=== PATIENT | female | born 1940 | race Caucasian/White ===

== ENCOUNTER 2018-06-10 10:21 | Outpatient (CLI) | payer MEDICARE, BC, SELFPAY ==
[2018-06-10 11:56] LABS: Hemoglobin A1C 6.2 % (4.5-6.2)
== END 2018-06-10 10:41 ==
PROVIDERS: PCP Family Medicine; Visit Provider Family Medicine
DX: E11.9 Type 2 diabetes mellitus without complications (principal)
CPT/HCPCS: 36415; 83036

== ENCOUNTER 2018-11-19 11:49 | Emergency (ER) | payer MEDICARE, BC, SELFPAY ==
[2018-11-19 12:01] VITALS: BP 186/66; PULSE 71; RESP 18; TEMP 36.5; O2SAT 97
--- NOTE | 2018-11-19 13:02 | ED.GENADUL_ITS ---
Discharge Plan Disposition Patient Disposition: HOME Discharge Details Chief Complaint: Orthopedic Clinical Impression: Acute left-sided low back pain Primary Care Provider: Syed Prieto ED Provider: Sly Muir Home Meds and New Rx's Prescriptions: New lidocaine 5 % adhesive patch,medicated 1 patch TP DAILY Qty: 15 RF: 0 ibuprofen 600 mg tablet 600 mg PO TID PRN (Reason: pain) Qty: 60 RF: 0 acetaminophen [Tylenol] 325 mg tablet 650 mg PO Q6H PRN (Reason: pain) Qty: 90 RF: 0 Continued ipratropium bromide 42 mcg (0.06 %) spray,non-aerosol 2 spray NS TID PRN (Reason: vasomotor rhinitis) Qty: 1 RF: 4 losartan 100 mg tablet 100 mg PO QAM Qty: 90 RF: 4 metoprolol succinate 50 mg tablet extended release 24 hr 50 mg PO DAILY Qty: 90 RF: 4 nicotine 21 mg/24 hr patch 24 hour 1 patch TD DAILY Qty: 28 RF: 2 Back and Body Pain Reliever 1 EACH tablet 1 ea PO DAILY RF: 0 clotrimazole 45 GM cream 45 gm Topical BID Qty: 45 RF: 3 diabetic shoes Qty: 2 RF: 0 nitroglycerin 0.4 MG tablet, sublingual 1 tab Buccal PRN Qty: 50 RF: 3 triamcinolone acetonide 15 GM cream 0 Topical BID Qty: 30 RF: 3 pravastatin 20 MG tablet 1 tab PO DAILY Qty: 90 RF: 4 sertraline 25 MG tablet 25 mg PO DAILY Qty: 30 RF: 3 omeprazole 40 MG capsule,delayed release(DR/EC) 1 tab PO DAILY Qty: 90 RF: 4 amlodipine 10 MG tablet 10 mg PO DAILY Qty: 90 RF: 4 hydrochlorothiazide 25 MG tablet 25 mg PO DAILY Qty: 90 RF: 4 Discontinued acetaminophen 325 MG tablet 325 mg PO DAILY RF: 0 naproxen sodium 550 MG tablet 550 mg PO BID Qty: 14 RF: 0 Discharge Instructions Instructions: Acute Low Back Pain (ED) Additional Instructions: Please take ibuprofen over the counter. Take 600mg by mouth every 6 hours as needed for pain. Please take acetaminophen (tylenol) - 650mg every 6 hours by mouth as needed for pain. Use lidocaine patch as prescribed. Please contact your primary care physician to arrange follow-up. If pain persists you may need additional diagnostic testing. Return to the ER for any worsening or new concerning symptoms. Referrals: Syed Prieto MD [Primary Care Provider] - Discharge Data Discharge Date/Time-TO BE ENTERED AT DEPARTURE: 11/19/18 13:17 Medical Decision Making 78yo f here with left lumbar and sacral paraspinal back pain. Patient is neurologically intact. No signs of cauda equina. No history to suspect fracture. Patient has no midline tenderness. Plan to increase dosing of ibuprofen and Tylenol. Will treat with lidocaine patch. I offered Valium and patient declined. Patient informed of elevated blood pressure. Patient will follow-up with her primary care physician as scheduled next week. Usual and customary discharge instructions were provide HPI General Mode of arrival: ambulatory . Date/Time Provider Initiated Documentation: 11/19/18 12:57 . Limitations to Documentation: no limitations . Information obtained by: patient . HPI Narrative: 78yo f here with chief complaint of back pain. Back pain is localized to left lower back. Patient denies trauma. 2 weeks ago she does note that she bent over and experienced a popping sensation in her left posterior hip. Over the past 4 days she notes increased discomfort in left low back. Pain feels sharp and worse with certain positions including bending and twisting. She has no associated numbness or bowel or bladder dysfunction. No abdominal pain Related Data Home Medications Medication Instructions Recorded Confirmed Back and Body Pain Reliever 1 ea PO DAILY tab 06/16/14 06/10/18 clotrimazole 45 gm TOPICAL BID #45 g 05/16/15 11/19/18 nitroglycerin 1 tab BUCCAL PRN #50 tab-cap 11/20/16 11/19/18 triamcinolone acetonide 0 TOPICAL BID #30 g 11/20/16 06/10/18 pravastatin 1 tab PO DAILY #90 tab 11/12/17 11/19/18 amlodipine 10 mg PO DAILY #90 tab 12/15/17 11/19/18 hydrochlorothiazide 25 mg PO DAILY #90 tab 12/15/17 11/19/18 omeprazole 1 tab PO DAILY #90 cap 12/15/17 11/19/18 sertraline 25 mg PO DAILY #30 tab-cap 12/15/17 11/19/18 ipratropium bromide 42 mcg (0.06 2 spray NS TID PRN #1 spray 06/10/18 11/19/18 %) nasal spray losartan 100 mg tablet 100 mg PO QAM #90 tab 06/10/18 11/19/18 metoprolol succinate 50 mg 50 mg PO DAILY #90 tab 06/10/18 11/19/18 tablet,extended release 24 hr nicotine 21 mg/24 hr daily 1 patch TD DAILY #28 each 06/10/18 11/19/18 transdermal patch acetaminophen [Tylenol] 650 mg PO Q6H PRN #90 tab 11/19/18 ibuprofen 600 mg PO TID PRN #60 tab 11/19/18 lidocaine 1 patch TP DAILY #15 each 11/19/18 Previous Rx's Medication Instructions Recorded pravastatin 1 tab PO DAILY #90 tab 11/12/17 amlodipine 10 mg PO DAILY #90 tab 12/15/17 hydrochlorothiazide 25 mg PO DAILY #90 tab 12/15/17 omeprazole 1 tab PO DAILY #90 cap 12/15/17 sertraline 25 mg PO DAILY #30 tab-cap 12/15/17 ipratropium bromide 42 mcg (0.06 2 spray NS TID PRN #1 spray 06/10/18 %) nasal spray losartan 100 mg tablet 100 mg PO QAM #90 tab 06/10/18 metoprolol succinate 50 mg 50 mg PO DAILY #90 tab 06/10/18 tablet,extended release 24 hr nicotine 21 mg/24 hr daily 1 patch TD DAILY #28 each 06/10/18 transdermal patch acetaminophen [Tylenol] 650 mg PO Q6H PRN #90 tab 11/19/18 ibuprofen 600 mg PO TID PRN #60 tab 11/19/18 lidocaine 1 patch TP DAILY #15 each 11/19/18 Allergies Allergy/AdvReac Type Severity Reaction Status Date / Time enalapril maleate AdvReac Intermediate Dizziness/L Unverified 06/10/18 09:33 [From Vasotec] ightheade General Stated Complaint: Orthopedic LACHELLE: 4 Review of Systems Constitutional Denies fever(s) and Denies weakness Cardiovascular Denies chest pain and Denies dyspnea Respiratory Denies dyspnea Gastrointestinal Denies abdominal pain Musculoskeletal Reports as per HPI and Denies numbness Neurologic Reports as per HPI, Denies numbness and Denies weakness PFSH Surgical History Abdominal hysterectomy Bladder Surgery Cholecystectomy Oophrectomy, Both Family History Mother Essential hypertension Personal history of malignant neoplasm Father Essential hypertension Personal history of malignant neoplasm Stroke Sister Essential hypertension Personal history of malignant neoplasm Brother Heart disease Grandfather Heart disease Grandmother Heart disease FAMILY HX BRCA gene positive Son Substance abuse Neoplasm Son Substance abuse Daughter Essential hypertension Daughter Depression Daughter Essential hypertension Depression Hyperlipidemia Daughter Essential hypertension Hyperlipidemia Other Alcohol abuse Social History Smoking/Tobacco Use Status: Current every day Tobacco Type: cigarettes Quit status: considering quitting Counseling given: provider counseling Alcohol Intake: current Alcohol Intake frequency: holidays/special occasions only Alcohol type: wine Drug use: Never Substance use type: unknown Caregiver/Support person: No Household members: spouse and children Housing: house Pets and animals: Yes Pets and animals: cat(s) and dog(s) Sexually active: No Do you think of yourself as: straight/heterosexual Current gender identity: female Frequency: does not exercise Nasrin/Confucianist: Orthodoxy Special nasrin needs: No Do you feel safe at home: Yes Do you feel safe in your relationship?: Yes Exam Const General: cooperative and no acute distress HENMT Head: normocephalic Mouth: moist mucous membranes Eyes Conjunctivae: normal conjunctivae Sclera: normal sclerae Neck Neck: supple Resp Auscultation: clear to auscultation bilaterally, no rales, no rhonchi and no wheezes Cardio Jugular venous pressure: no JVD Rate: regular rate and not tachycardic Rhythm: regular rhythm GI Palpation: soft, not firm, no guarding, no masses, not rigid and nontender Back/Spine/Pelvis Back: No erythema, No warmth, No sacral edema and No ecchymosis Cervical Spine: cervical ROM normal and No cervical spinal tenderness Thoracic/Lumbar Spine: paraspinal tenderness (left lumbar), No thoracic spinal tenderness and No lumbar spinal tenderness Sacroiliac joints: on the left tender to palpation (mild) Skin General skin exam: no rashes or lesions noted Neuro General: alert, awake, oriented x3 and tone normal Course Vital Signs Temperature 36.5 C 11/19/18 12:01 Pulse 71 11/19/18 12:01 Respiratory Rate 18 11/19/18 12:01 Blood Pressure 186/66 H 07/05/19 12:01 Pulse Oximetry 97 11/19/18 12:01 Temperature 36.5 C 11/19/18 12:01 Temperature Source Temporal Artery Scan 11/19/18 12:01 Pulse 71 11/19/18 12:01 Respiratory Rate 18 11/19/18 12:01 Respiratory Effort Non-Labored 11/19/18 12:06 Blood Pressure 186/66 H 11/19/18 12:01 Blood Pressure Position Sitting 11/19/18 12:01 Pulse Oximetry 97 11/19/18 12:01 Oxygen Delivery Method Room Air 11/19/18 12:01 Oxygen Flow Rate 0 11/19/18 12:01 Pain Level 10 11/19/18 12:01
[2018-11-19] MEDS: Ibuprofen 600 MG TAB PO (13:09)
[2018-11-19] MEDS: Acetaminophen 325 MG TAB 650 MG PO (13:10)
[2018-11-19] MEDS: Lidocaine 5% Patch 1 PATCH TP (13:11)
== END 2018-11-19 13:17 | disposition home or self-care (01) ==
PROVIDERS: Emergency Provider Student in an Organized Health Care Education/Training Program; PCP Family Medicine
DX: M54.5 Low back pain (principal); E11.9 Type 2 diabetes mellitus without complications; I10 Essential (primary) hypertension
CPT/HCPCS: 99283

== ENCOUNTER 2019-01-21 10:03 | Outpatient (CLI) | payer MEDICARE, BC, SELFPAY ==
--- NOTE | 2019-01-21 12:00 | DI.RAD_ITS ---
SYMPTOMS/DIAGNOSIS: RT KNEE PAIN, M25.561 RIGHT KNEE: Four views were obtained. The cartilaginous joint spaces appear fairly well maintained. Mild marginal osteophyte formation noted particularly at the patellofemoral joint. CONCLUSION: Mild DJD of the knee. No other significant findings.
[2019-01-21 13:57] LABS: Anion Gap 10.9 mmol/L (3-11); BUN 16 mg/dL (7-18); CO2 28.1 mmol/L (21.0-32.0); CREATININE 0.64 mg/dL (0.55-1.02); Calcium 9.4 mg/dL (8.5-10.1); Chloride 105 mmol/L (98-107); Glucose 112 mg/dL (70-100); Potassium 4.2 mmol/L (3.5-5.1); Sodium 144 mmol/L (136-145)
== END 2019-01-21 10:23 ==
PROVIDERS: PCP Family Medicine; Visit Provider Family Medicine
DX: M25.561 Pain in right knee (principal); M17.11 Unilateral primary osteoarthritis, right knee; I10 Essential (primary) hypertension
CPT/HCPCS: 36415; 73562; 80048

== ENCOUNTER 2019-03-15 07:40 | Emergency (ER) | payer MEDICARE, BC, SELFPAY ==
[2019-03-15 07:51] VITALS: BP 160/59; PULSE 73; RESP 16; TEMP 36.5; O2SAT 98
--- NOTE | 2019-03-15 08:26 | W.ED.GENAD ---
Discharge Plan Disposition Patient Disposition: HOME Condition: Good Discharge Details Chief Complaint: RashLesion Clinical Impression: Tick bite Primary Care Provider: Syed Prieto ED Provider: Cely Fletcher Home Meds and New Rx's Prescriptions: No Action ipratropium bromide 42 mcg (0.06 %) spray,non-aerosol 2 spray NS TID PRN (Reason: vasomotor rhinitis) Qty: 1 RF: 4 losartan 100 mg tablet 100 mg PO QAM Qty: 90 RF: 4 metoprolol succinate 50 mg tablet extended release 24 hr 50 mg PO DAILY Qty: 90 RF: 4 nicotine 21 mg/24 hr patch 24 hour 1 patch TD DAILY Qty: 28 RF: 2 Back and Body Pain Reliever 1 EACH tablet 1 ea PO DAILY RF: 0 clotrimazole 45 GM cream 45 gm Topical BID Qty: 45 RF: 3 diabetic shoes Qty: 2 RF: 0 nitroglycerin 0.4 MG tablet, sublingual 1 tab Buccal PRN Qty: 50 RF: 3 triamcinolone acetonide 15 GM cream 0 Topical BID Qty: 30 RF: 3 amlodipine 10 mg tablet 10 mg PO DAILY Qty: 90 RF: 4 hydrochlorothiazide 25 mg tablet 25 mg PO DAILY Qty: 90 RF: 4 omeprazole 40 mg capsule,delayed release(DR/EC) 40 mg PO DAILY Qty: 90 RF: 4 pravastatin 20 mg tablet 20 mg PO DAILY Qty: 90 RF: 4 lidocaine 5 % adhesive patch,medicated 1 patch TP DAILY Qty: 15 RF: 0 ibuprofen 600 mg tablet 600 mg PO TID PRN (Reason: pain) Qty: 60 RF: 0 acetaminophen [Tylenol] 325 mg tablet 650 mg PO Q6H PRN (Reason: pain) Qty: 90 RF: 0 Discharge Instructions Instructions: Lyme Disease (ED), Tick Bite (ED) Additional Instructions: Wash area of tick bite with soap and water once or twice daily. May apply topical antibiotic ointment to the bite area Observe for any symptoms of Lyme as discussed. Specifically observe for headache, achy joints, fever, fatigue or feeling vaguely ill, rashes. Review information regarding Lyme symptoms and tick bites Recheck with your primary care doctor in the next 4 to 6 weeks for possible lab recheck as discussed. Return for any worsening or concerns sooner if needed. Return for any signs or symptoms of Lyme as discussed Medical Decision Making Is a very pleasant 78-year-old woman who presents for tick bite which has been attached for an unknown period of time she thinks greater than 3 days. She does report mild fatigue over the weekend that she attributes to travel for a over the weekend. Patient consents to prophylactic dose of doxycycline at this time. Would prefer close observation for any developing symptoms and retest labs with PCP at her convenience. Patient counseled regarding signs and symptoms of Lyme. Information sheets provided for patient to review for home. Patient agrees with plan of care. The patient was stable and requested discharge. Prior to discharge, my usual and customary return precautions were reviewed with the patient - this included follow-up instructions and reasons to return to the Emergency Department if conditions worsens, does not improve as expected, or other new concerns arise. HPI General Date/Time Provider Initiated Documentation: 03/15/19 08:22. HPI Narrative: Patient presents for concerns of tick bite. Patient reports she was away for the weekend and does not recall when she was bit. Patient did note last night a tick embedded behind her right upper arm. Patient has been unable to fully remove the tick. Patient does report mild fatigue over the weekend but was away for a and attributes her fatigue to travel. Patient denies headache, fever, new joint pain or new ill feeling. Patient denies any rashes outside of mild erythema at the site of the bite. No other concerns or complaints at this time Related Data Home Medications Medication Instructions Recorded Confirmed Back and Body Pain Reliever 1 ea PO DAILY tab 06/16/14 03/15/19 clotrimazole 45 gm TOPICAL BID #45 g 05/16/15 03/15/19 nitroglycerin 1 tab BUCCAL PRN #50 tab-cap 11/20/16 03/15/19 triamcinolone acetonide 0 TOPICAL BID #30 g 11/20/16 01/21/19 ipratropium bromide 42 mcg (0.06 2 spray NS TID PRN #1 spray 06/10/18 03/15/19 %) nasal spray losartan 100 mg tablet 100 mg PO QAM #90 tab 06/10/18 03/15/19 metoprolol succinate 50 mg 50 mg PO DAILY #90 tab 06/10/18 03/15/19 tablet,extended release 24 hr nicotine 21 mg/24 hr daily 1 patch TD DAILY #28 each 06/10/18 03/15/19 transdermal patch acetaminophen [Tylenol] 650 mg PO Q6H PRN #90 tab 11/19/18 03/15/19 ibuprofen 600 mg PO TID PRN #60 tab 11/19/18 03/15/19 lidocaine 1 patch TP DAILY #15 each 11/19/18 03/15/19 amlodipine 10 mg tablet 10 mg PO DAILY #90 tab 12/23/18 03/15/19 hydrochlorothiazide 25 mg tablet 25 mg PO DAILY #90 tab 12/23/18 03/15/19 omeprazole 40 mg capsule,delayed 40 mg PO DAILY #90 cap 12/23/18 03/15/19 release pravastatin 20 mg tablet 20 mg PO DAILY #90 tab 12/23/18 03/15/19 Previous Rx's Medication Instructions Recorded ipratropium bromide 42 mcg (0.06 2 spray NS TID PRN #1 spray 06/10/18 %) nasal spray losartan 100 mg tablet 100 mg PO QAM #90 tab 06/10/18 metoprolol succinate 50 mg 50 mg PO DAILY #90 tab 06/10/18 tablet,extended release 24 hr nicotine 21 mg/24 hr daily 1 patch TD DAILY #28 each 06/10/18 transdermal patch acetaminophen [Tylenol] 650 mg PO Q6H PRN #90 tab 11/19/18 ibuprofen 600 mg PO TID PRN #60 tab 11/19/18 lidocaine 1 patch TP DAILY #15 each 11/19/18 amlodipine 10 mg tablet 10 mg PO DAILY #90 tab 12/23/18 hydrochlorothiazide 25 mg tablet 25 mg PO DAILY #90 tab 12/23/18 omeprazole 40 mg capsule,delayed 40 mg PO DAILY #90 cap 12/23/18 release pravastatin 20 mg tablet 20 mg PO DAILY #90 tab 12/23/18 Allergies Allergy/AdvReac Type Severity Reaction Status Date / Time enalapril maleate AdvReac Intermediate Dizziness/L Unverified 03/15/19 07:55 [From Vasotec] ightheade General Stated Complaint: RashLesion LACHELLE: 4 Review of Systems All systems reviewed & are unremarkable except as noted in HPI and below Constitutional Constitutional: Denies chills, Denies fatigue, Denies fever(s), Denies headache(s) and Denies malaise ENT Ears, Nose, Mouth, and Throat: Denies headache(s) Gastrointestinal Gastrointestinal: Denies abdominal pain, Denies nausea and Denies vomiting Musculoskeletal Musculoskeletal: Denies back pain Integumentary/Breasts Skin/Breast: Denies rash Neurologic Neurologic: Denies headache(s) Endocrine Endocrine: Denies fatigue PFSH Surgical History Abdominal hysterectomy and anterior repair Bladder Surgery X 2 Cholecystectomy Oophrectomy, Both bilateral; sister + BRCA gene Family History Mother Essential hypertension Personal history of malignant neoplasm COLON Father Essential hypertension Personal history of malignant neoplasm LUNG Stroke Sister Essential hypertension Personal history of malignant neoplasm OVARIAN Brother Heart disease Grandfather Heart disease Grandmother Heart disease FAMILY HX BRCA gene positive Son Substance abuse Neoplasm Son Substance abuse Daughter Essential hypertension Daughter Depression Daughter Essential hypertension Depression Hyperlipidemia Daughter Essential hypertension Hyperlipidemia Other Alcohol abuse Social History Smoking/Tobacco Use Status: Current every day Tobacco Type: cigarettes Quit status: considering quitting Counseling given: provider counseling Alcohol Intake: current Alcohol Intake frequency: holidays/special occasions only Alcohol type: wine Drug use: Never Substance use type: unknown Caregiver/Support person: No Household members: spouse and children Housing: house Pets and animals: Yes Pets and animals: cat(s) and dog(s) Sexually active: No Do you think of yourself as: straight/heterosexual Current gender identity: female Frequency: does not exercise Nasrin/Buddhism: Rastafarian Special nasrin needs: No Do you feel safe at home: Yes Do you feel safe in your relationship?: Yes Exam Narrative Exam Narrative: CONST: Healthy appearing patient, in no acute distress. Well hydrated. Alert and alert. NECK: Normal visual inspection. FROM. Trachea midline. No Midline tenderness. CHEST: Normal insepection of the chest. MUSCULOSKELETAL: Normal Gait. FROM of all extremities. SKIN: Normal. Dry. No rashes. Patient with a embedded tick head on the posterior of her right proximal arm. Tick head was easily removed. No obvious retained foreign body. Mild erythema approximately 1 cm at site of tick bite. No associated rashes NEURO: Alert and awake. Speech clear. PSYCH: Normal affect. Cooperative. Course Vital Signs Vital signs: Vital Signs Temperature 36.5 C 03/15/19 07:51 Pulse 73 03/15/19 07:51 Respiratory Rate 16 03/15/19 07:51 Blood Pressure 160/59 H 03/15/19 07:51 Pulse Oximetry 98 03/15/19 07:51 Temperature 36.5 C 03/15/19 07:51 Temperature Source Temporal Artery Scan 03/15/19 07:51 Pulse 73 03/15/19 07:51 Respiratory Rate 16 03/15/19 07:51 Respiratory Effort 03/15/19 07:51 Blood Pressure 160/59 H 03/15/19 07:51 Blood Pressure Position Sitting 03/15/19 07:51 Pulse Oximetry 98 03/15/19 07:51 Oxygen Delivery Method Room Air 03/15/19 07:51 Oxygen Flow Rate 0 03/15/19 07:51 Pain Level 0 03/15/19 07:51
[2019-03-15] MEDS: Doxycycline Hyclate 100 MG CAP 200 MG PO (08:28)
== END 2019-03-15 08:34 | disposition home or self-care (01) ==
PROVIDERS: Emergency Provider Physician Assistant; PCP Family Medicine
DX: S40.861A Insect bite (nonvenomous) of right upper arm, initial encounter (principal); W57.XXXA Bitten or stung by nonvenomous insect and other nonvenomous arthropods, initial encounter; E11.9 Type 2 diabetes mellitus without complications; I10 Essential (primary) hypertension
CPT/HCPCS: 99283

== ENCOUNTER 2020-01-19 04:31 | Outpatient (CLI) | payer MEDICARE, BC, SELFPAY ==
[2020-01-19 12:30] LABS: Anion Gap 8.1 mmol/L (3-11); BUN 18 mg/dL (7-18); CO2 26.9 mmol/L (21.0-32.0); CREATININE 0.62 mg/dL (0.55-1.02); Calcium 9.3 mg/dL (8.5-10.1); Chloride 108 mmol/L (98-107); Glucose 122 mg/dL (74-106); Potassium 4.2 mmol/L (3.5-5.1); Sodium 143 mmol/L (136-145)
== END 2020-01-19 04:51 ==
PROVIDERS: PCP Nurse Practitioner; Visit Provider Family Medicine
DX: I10 Essential (primary) hypertension (principal)
CPT/HCPCS: 36415; 80048

== ENCOUNTER 2020-02-08 13:00 | Emergency (ER) | payer MEDICARE, BC, SELFPAY ==
[2020-02-08] VITALS (44 sets, daily range): BP systolic 108–169; BP diastolic 47–101; PULSE 59–109; RESP 5–29; TEMP 36.5–36.6; O2SAT 87–100
--- NOTE | 2020-02-08 13:00 | RT.EKG_ITS ---
APPROVED REPORT Exam: Resting ECG Patient Location: E HR:81 bpm ECG Measurements Heart Rate 81 AXIS MS 294 P 84 QRSd 94 QRS 44 QT 385 T 73 QTc 442 Conclusion Sinus rhythm... Atrial premature complexes... Prolonged MS interval...MS >220, V-rate 81
--- NOTE | 2020-02-08 13:30 | W.ED.GENAD ---
Discharge Plan Disposition Patient Disposition: HOME Condition: Fair Discharge Details Clinical Impression: Acute exacerbation of chronic obstructive pulmonary disease Primary Care Provider: Cecily Osullivan ED Provider: Kimberly Da Silva Home Meds and New Rx's Prescriptions: New doxycycline hyclate 100 mg capsule 100 mg PO BID Qty: 14 RF: 0 prednisone 20 mg tablet 40 mg PO DAILY 4 Days Qty: 8 RF: 0 Continued amlodipine 10 mg tablet 10 mg PO DAILY Qty: 90 RF: 4 hydrochlorothiazide 25 mg tablet 25 mg PO DAILY Qty: 90 RF: 4 pravastatin 20 mg tablet 20 mg PO DAILY Qty: 90 RF: 4 clotrimazole 45 GM cream 45 gm Topical BID Qty: 45 RF: 3 diabetic shoes Qty: 2 RF: 0 nitroglycerin 0.4 MG tablet, sublingual 1 tab Buccal PRN Qty: 50 RF: 3 triamcinolone acetonide 0.1 % cream 1 applic Topical BID Qty: 30 RF: 2 Back and Body Pain Reliever 500-32.5 mg tablet 1 tab PO DAILY PRNRF: 0 ipratropium bromide 42 mcg (0.06 %) spray,non-aerosol 2 spray NS TID PRN (Reason: vasomotor rhinitis) Qty: 1 RF: 4 losartan 100 mg tablet 100 mg PO QAM Qty: 90 RF: 4 metoprolol succinate 50 mg tablet extended release 24 hr 50 mg PO DAILY Qty: 90 RF: 4 acetaminophen [Tylenol] 325 mg tablet 650 mg PO Q6H PRN (Reason: pain) Qty: 90 RF: 0 omeprazole 40 mg capsule,delayed release(DR/EC) 40 mg PO DAILY PRN PRNRF: 0 ibuprofen 200 mg Capsule 200 mg PO HS RF: 0 Discharge Instructions Instructions: Albuterol (By breathing), COPD (Chronic Obstructive Pulmonary Disease) (ED) Additional Instructions: At this time, your work-up, exam and history are most consistent with COPD exacerbation. May use your albuterol inhaler as needed for shortness of breath. Please use 2 puffs every 4-6 hours as needed. Please use the steroids as prescribed. Given today's dosing will not need another test tomorrow. Please take antibiotics as prescribed, processing will be due at bedtime tonight. Encourage water intake. Please follow-up closely with your primary care doctor, call tomorrow to schedule appointment within the next week. If you develop chest pain, fever/chills, increased difficulty breathing or other new/worsening symptoms please seek care urgently once again. Referrals: Cecily Osullivan NP [Primary Care Provider] - Medical Decision Making <KEYUR Lara - Last Filed: 02/08/20 15:34> 79-year-old female presenting to the ER for evaluation of 6-day history of cough with mild clear sputum, shortness of breath worse with exertion. She presents with an O2 sat of 94 on room air. She appears well, nontoxic but does have rails and wheezing scattered. She does smoke a pack of cigarettes daily. She states that she was diagnosed with COPD today and told to come to the hospital. She does not use inhalers at home and is not on oxygen at baseline. She lives at home with her family and has strong resources. Differential includes but not excluded to COPD exacerbation, pneumonia, bronchitis, COVID, URI, atypical ACS. Feel as though PE is unlikely given her presentation. She will be given a DuoNeb, albuterol, and I will initiate a cardiac work-up. White blood cell count is 7.05 hemoglobin 13.5 hematocrit 39.5 platelet count 259. INR 1, PT 10.1. Electrolytes unremarkable. Creatinine 0.80 with a GFR greater than 60. Glucose 118. LFTs unremarkable. Troponin less than 0.05 with a magnesium of 2.2. BNP 158. COVID pending Chest x-ray negative. Presentation is looking more like a COPD exacerbation. Given 125 IV Solu-Medrol. Upon evaluation patient remains pain-free, in fact she has not had any pain associate with any of the symptoms. She reports that her breathing is dramatically improved. She appears well, nontoxic and speaking in full sentences. Her O2 sats are now in the high 90s while the updraft and her breath sounds are far improved when compared to initial presentation. She moving more air and only a small amount of scattered wheezing persist. Had a long transparent conversation with the patient at this time. Patient would prefer to be discharged if at all possible. Given her unremarkable laboratory values, clear chest x-ray, O2 sats in the 90s, I do believe this is likely appropriate however I would like to obtain a repeat 3-hour troponin and EKG for cardiac rule out. Discussed treatment with albuterol inhaler and burst dose of steroids. Patient is comfortable this plan and would prefer this over an observation admission. At time of signout both updrafts have been completed. Patient awaiting her repeat troponin and EKG. Medical Records Medical records reviewed: Yes I reviewed the patient's medical records. Imaging Data Radiologic Study: Attestation: I personally reviewed and interpreted this imaging study as follows: Imaging: X-Ray Radiologist's impression: Chest x-ray negative Lab Data Lab results reviewed: Yes I reviewed the patient's lab results. Lab results narrative: Laboratory Tests Range/Units 02/08/20 02/08/20 02/08/20 13:15 13:15 13:15 WBC (4.4-10.8) 10^3/uL 7.05 RBC (3.93-5.22) 10^6/uL 4.43 Hgb (11.2-15.7) g/dL 13.5 Hct (36.0-46.0) % 39.5 MCV (80-95) fL 89.2 MCH (27.0-33.0) pg 30.5 MCHC (32.0-36.0) % 34.2 RDW (11.7-14.6) % 12.9 Plt Count (130-400) 10^3/uL 259 MPV (8.0-11.0) fL 10.7 Immature Gran % 0.1 Neutrophils % 52.1 Lymphocytes % 34.8 Monocytes % 7.5 Eosinophils % 4.4 Basophils % 1.1 Nucleated RBC % % 0 Absolute Neutrophils (1.2-6.7) 10^3/uL 3.67 Absolute Lymphocytes (1.2-3.4) 10^3/uL 2.45 Absolute Monocytes (0.1-0.8) 10^3/uL 0.53 Absolute Eosinophils (0.0-0.7) 10^3/uL 0.31 Absolute Basophils (0.0-0.2) 10^3/uL 0.08 PT (9.3-11.0) sec 10.1 INR (0.9-1.1) 1.0 APTT (21.0-31.4) sec 27.0 Sodium (136-145) mmol/L 139 Potassium (3.5-5.1) mmol/L 3.8 Chloride (98-107) mmol/L 102 Carbon Dioxide (21.0-32.0) mmol/L 28.0 Anion Gap (3-11) mmol/L 9.0 BUN (7-18) mg/dL 13 Creatinine (0.55-1.02) mg/dL 0.80 Estimated GFR/1.73 m2 (mL/min/1.73m2) >= 60.00 Glucose (74-106) mg/dL 118 H Calcium (8.5-10.1) mg/dL 9.4 Magnesium (1.8-2.4) mg/dL 2.2 Total Bilirubin (0.2-1.0) mg/dL 0.5 AST (15-37) U/L 24 ALT (14-59) U/L 18 Alkaline Phosphatase (46-116) U/L 112 Troponin I (<0.06) ng/mL < 0.05 NT-Pro-B Natriuret Pep (<300) pg/mL 158 Total Protein (6.4-8.2) g/dL 7.9 Albumin (3.4-5.0) g/dL 3.8 ECG Data Attestation: I personally reviewed and interpreted this ECG (s) as follows: Interpretation: Please see official report by Dr. Kerr. Sinus rhythm, ventricular rate of 81. Atrial premature complexes. No STEMI <KEYUR Robbins - Last Filed: 02/08/20 17:08> Care transition myself and Gregorio Hartman PA-C with repeat troponin pending. Please see his initial note for history, exam and work-up findings thus far. In brief, patient is a pleasant 79-year-old female who came in with chief complaint of shortness of breath. Patient is a largely negative work-up thus far. Patient does have a heavy smoking history and was diagnosed with COPD today. This is new for the patient per her report. She is denied any chest pain, fevers or chills. Responded well to treatment thus far. Nebulizer and IV steroids. Reexamined the patient. She is speaking in full sentences, appears to be in no respiratory distress. Has minimal wheezing at this time. Continues to maintain her oxygen saturation and is requesting discharge. Repeat troponin negative. Discussed these findings with the patient. She reports feeling much improved. She is denying feeling short of breath at this time. Patient will be treated for her COPD exacerbation with continued steroids, albuterol inhaler and doxycycline. Will have nursing staff instruction demonstrate how to use inhaler with spacer prior to departure. Return precautions were given. Advised that she follow-up with primary care for reevaluation. Did encourage smoking cessation. All of her questions and concerns were addressed and she is in agreement this plan. HPI <KEYUR Lara - Last Filed: 02/08/20 15:34> General Mode of arrival: ambulatory. Date/Time Provider Initiated Documentation: 02/08/20 13:03. Limitations to Documentation: no limitations. Information obtained by: patient. HPI Narrative: This is an 79-year-old female with past medical history of GERD, hypercholesteremia, hypertension, current pack-a-day smoker, irritable bowel syndrome, diabetes, and what she tells me is a new diagnosis of COPD today. She went to see her primary care provider today for 6-day history of shortness of breath, cough with mild clear sputum. She reports that her shortness of breath does get worse with exertion. She denies fever, chest pain, back pain, abdominal pain, nausea, vomiting, numbness, tingling, weakness. Denies recent illness or travel. Denies sick contacts. She does not wear oxygen at baseline. She lives at home with her family and has strong support and resources. She reports mild swelling in both of her legs and this is baseline for her. Patient reports that her son committed suicide nearly 20 years ago and at that time she had a broken heart heart attack. She denies any cardiac history since that time. Related Data Home Medications Medication Instructions Recorded Confirmed clotrimazole 45 gm TOPICAL BID #45 g 05/16/15 02/08/20 nitroglycerin 1 tab BUCCAL PRN #50 tab-cap 11/20/16 02/08/20 acetaminophen [Tylenol] 650 mg PO Q6H PRN #90 tab 11/19/18 02/08/20 triamcinolone acetonide 0.1 % 1 applic TOPICAL BID #30 gm 07/01/19 02/08/20 topical cream aspirin-caffeine 500 mg-32.5 mg 1 tab PO DAILY PRN tab 07/21/19 02/08/20 tablet ipratropium bromide 42 mcg (0.06 2 spray NS TID PRN #1 spray 07/22/19 02/08/20 %) nasal spray losartan 100 mg tablet 100 mg PO QAM #90 tab 08/08/19 02/08/20 metoprolol succinate 50 mg 50 mg PO DAILY #90 tab 08/08/19 02/08/20 tablet,extended release 24 hr amlodipine 10 mg tablet 10 mg PO DAILY #90 tab 01/17/20 02/08/20 hydrochlorothiazide 25 mg tablet 25 mg PO DAILY #90 tab 01/17/20 02/08/20 pravastatin 20 mg tablet 20 mg PO DAILY #90 tab 01/17/20 02/08/20 doxycycline hyclate 100 mg PO BID #14 cap 02/08/20 ibuprofen 200 mg PO HS 02/08/20 02/08/20 omeprazole 40 mg PO DAILY PRN PRN 02/08/20 02/08/20 prednisone 40 mg PO DAILY 4 Days #8 tab 02/08/20 Previous Rx's Medication Instructions Recorded acetaminophen [Tylenol] 650 mg PO Q6H PRN #90 tab 11/19/18 triamcinolone acetonide 0.1 % 1 applic TOPICAL BID #30 gm 07/01/19 topical cream ipratropium bromide 42 mcg (0.06 2 spray NS TID PRN #1 spray 07/22/19 %) nasal spray losartan 100 mg tablet 100 mg PO QAM #90 tab 08/08/19 metoprolol succinate 50 mg 50 mg PO DAILY #90 tab 08/08/19 tablet,extended release 24 hr amlodipine 10 mg tablet 10 mg PO DAILY #90 tab 01/17/20 hydrochlorothiazide 25 mg tablet 25 mg PO DAILY #90 tab 01/17/20 pravastatin 20 mg tablet 20 mg PO DAILY #90 tab 01/17/20 doxycycline hyclate 100 mg PO BID #14 cap 02/08/20 prednisone 40 mg PO DAILY 4 Days #8 tab 02/08/20 Allergies Allergy/AdvReac Type Severity Reaction Status Date / Time enalapril maleate AdvReac Intermediate Dizziness/L Unverified 02/08/20 13:35 [From Vasotec] ightheade General Stated Complaint: SOB LACHELLE: 2 Review of Systems <KEYUR Lara - Last Filed: 02/08/20 15:34> Constitutional Constitutional: Denies fatigue, Denies fever(s) and Denies weakness ENT Ears, Nose, Mouth, and Throat: Denies neck pain and Denies sore throat Cardiovascular Cardiovascular: Denies chest pain and Reports dyspnea Respiratory Respiratory: Reports cough, Reports dyspnea and Reports wheezing Gastrointestinal Gastrointestinal: Denies abdominal pain, Denies diarrhea, Denies nausea and Denies vomiting Genitourinary Genitourinary: Denies dysuria Musculoskeletal Musculoskeletal: Denies back pain, Denies neck pain, Denies numbness and Denies tingling Integumentary/Breasts Skin/Breast: Denies rash Neurologic Neurologic: Denies numbness, Denies tingling and Denies weakness Endocrine Endocrine: Denies fatigue Allergic/Immunologic Allergic/Immunologic: Reports wheezing PFSH <KEYUR Lara - Last Filed: 02/08/20 15:34> Surgical History Abdominal hysterectomy and anterior repair Bladder Surgery X 2 Cholecystectomy History of bilateral oophorectomy History of bladder surgery Oophrectomy, Both bilateral; sister + BRCA gene Status post abdominal hysterectomy Status post cholecystectomy Family History Mother , age 80+ Essential hypertension Colon cancer Father , age 66+ Essential hypertension Stroke Alcohol abuse Lung cancer Sister Essential hypertension Ovarian cancer Brother Heart disease Alcohol abuse Maternal Grandfather , age 47 Heart disease Maternal Grandmother Heart disease FAMILY HX BRCA gene positive Son , age 61 Substance abuse Neoplasm Alcohol abuse Son , Suicide age 39 Substance abuse Alcohol abuse Daughter Alcohol abuse Recovery Cancer Depression Substance abuse Daughter Depression Alcohol abuse Substance abuse Daughter Essential hypertension Depression Hyperlipidemia Daughter Essential hypertension Hyperlipidemia Paternal Grandfather No problems noted. Paternal Grandmother No problems noted. Social History Smoking/Tobacco Use Status: Current every day Tobacco Type: cigarettes Counseling given: provider counseling Alcohol Intake: current Alcohol Intake frequency: holidays/special occasions only Alcohol type: wine Drug use: Never Substance use type: does not use Caregiver/Support person: No Household members: significant other and children Housing: house Do you need help understanding health information?: Rarely Pets and animals: Yes Pets and animals: cat(s) and dog(s) Sexually active: No Do you think of yourself as: straight/heterosexual Current gender identity: female What is your relationship status?: How often do you talk on the phone with friends or family?: three or more times per week How often do you get together with friends or relatives?: three or more times per week How often do you attend scientology or latter day services?: 4 or more times per year Do you belong to any clubs or organized social groups?: no Panel score (0-1 are the most socially isolated patients): 3 What type of physical activity do you participate in: walking Duration: 15-30 minutes/day Frequency: daily Nasrin/Rastafari: Hindu Special nasrin needs: No Seatbelt use: always Helmet use: No Drive intox or ride w/intox van driver helper: No Do you feel safe at home: Yes Do you feel safe in your relationship?: Yes Exam <KEYUR Lara - Last Filed: 02/08/20 15:34> Const General: cooperative, healthy appearing, comfortable and no acute distress Orientation: alert, awake and oriented x3 HENMT Head: normal to inspection, normocephalic and atraumatic Face and sinus: normal facial exam Mouth: moist mucous membranes Throat: posterior oropharynx normal Eyes Conjunctivae: conjunctivae normal Sclera: sclerae normal Neck Neck: normal visual inspection, full ROM, trachea midline and supple Resp Effort & Inspection: normal respiratory effort, able to speak in complete sentences and cough Auscultation: rales (Scattered throughout) and wheezes (Expiratory, scattered throughout) Cardio Rate: regular rate Rhythm: regular rhythm GI Inspection: normal to inspection Palpation: not soft and nontender Back/Spine/Pelvis Back: No back tenderness Skin General skin exam: no rashes or lesions noted Neuro General: patient alert, patient awake, patient oriented x3, moves all extremities and no focal motor deficits Cranial Nerves: CN's II-XI intact bilaterally Cognition: normal cognition Speech: speech normal Gait: normal gait Motor: muscle tone normal throughout and strength 5/5 throughout Sensory Exam: no sensory deficits noted Extrem General: normal to inspection, full ROM, no calf tenderness and pedal edema bilaterally 1+ Psych Appearance: grossly normal Mental Status: mental status grossly normal Course <KEYUR Lara - Last Filed: 02/08/20 15:34> Vital Signs Vital signs: Vital Signs Temperature 36.6 C 02/08/20 13:06 Pulse 80 02/08/20 13:06 Respiratory Rate 28 H 02/08/20 13:06 Blood Pressure 155/81 H 02/08/20 13:06 Pulse Oximetry 95 02/08/20 13:06 Temperature 36.6 C 02/08/20 13:06 Temperature Source Skin 02/08/20 13:06 Pulse 80 02/08/20 13:06 Respiratory Rate 28 H 02/08/20 13:06 Respiratory Effort 02/08/20 13:15 Blood Pressure 155/81 H 02/08/20 13:06 Pulse Oximetry 95 02/08/20 13:06 Oxygen Delivery Method Room Air 02/08/20 13:06 Oxygen Flow Rate 0 02/08/20 13:06 Pain Level 0 02/08/20 13:06 Sign Out <KEYUR Lara - Last Filed: 02/08/20 15:34> Sign Out Data: Sign Out Comment: Pending repeat troponin and EKG. Patient would prefer discharge. Will likely benefit from albuterol inhaler and burst steroids. Last updated by Jean-Paul Hartman PA at 02/08/20 15:36
[2020-02-08 14:08] LABS: Abs Immature Grans 0.01 10^3/uL (0.0-0.06); Absolute Basophil Count 0.08 10^3/uL (0.0-0.2); Absolute Eosinophil Count 0.31 10^3/uL (0.0-0.7); Absolute Lymphocyte Count 2.45 10^3/uL (1.2-3.4); Absolute Monocyte Count 0.53 10^3/uL (0.1-0.8); Absolute Neutrophil Count 3.67 10^3/uL (1.2-6.7); Basophils % 1.1; Eosinophils % 4.4; HCT 39.5 % (36.0-46.0); HGB 13.5 g/dL (11.2-15.7); Immature Grans % 0.1; Lymphocytes % 34.8; MCH 30.5 pg (27.0-33.0); MCHC 34.2 % (32.0-36.0); MCV 89.2 fL (80-95); MPV 10.7 fL (8.0-11.0); Monocytes % 7.5; Neutrophils % 52.1; Nucleated RBC 0 %; Platelet Count 259 10^3/uL (130-400); RBC 4.43 10^6/uL (3.93-5.22); RDW 12.9 % (11.7-14.6); RDW-SD 42.4 fL; WBC 7.05 10^3/uL (4.4-10.8)
[2020-02-08] MEDS: Albuterol/Ipratropium 3 ML UPD VIAL UPD (14:09)
--- NOTE | 2020-02-08 14:17 | DI.RAD_ITS ---
EXAM: XR PORTABLE CHEST AP CLINICAL HISTORY: sob/cough TECHNIQUE: 2D digital imaging was performed. COMPARISON: No exams were available for comparison FINDINGS: MEDIASTINUM: Normal. HEART: Normal. PULMONARY VASCULATURE: Normal. LUNGS: Clear. PLEURAL SPACE: No pleural effusion or pneumothorax. BONE:Within normal limits for the patient's age. OTHER FINDINGS:Surgical clips are seen in the upper abdomen. IMPRESSION: No acute pulmonary findings. DATA REPOSITORY: RADIATION DOSE DELIVERED:
[2020-02-08 14:26] LABS: Prothrombin Time 10.1 sec (9.3-11.0)
[2020-02-08 14:34] LABS: ALT 18 U/L (14-59); AST 24 U/L (15-37); Albumin 3.8 g/dL (3.4-5.0); Alkaline Phosphatase 112 U/L (46-116); BUN 13 mg/dL (7-18); Bilirubin, Total 0.5 mg/dL (0.2-1.0); Calcium 9.4 mg/dL (8.5-10.1); Chloride 102 mmol/L (98-107); Glucose 118 mg/dL (74-106); Magnesium 2.2 mg/dL (1.8-2.4); NT-proBNP 158 pg/mL (<300); Potassium 3.8 mmol/L (3.5-5.1); Sodium 139 mmol/L (136-145); Total Protein 7.9 g/dL (6.4-8.2)
[2020-02-08 14:35] LABS: Troponin I < 0.05 ng/mL (<0.06)
[2020-02-08] MEDS: methylPREDNISolone SUCC 125 MG VIAL IVP (15:39)
[2020-02-08 16:38] LABS: Troponin I < 0.05 ng/mL (<0.06)
[2020-02-09 01:57] LABS: COVID-19 RT-PCR UVMMC Result Negative (Negative)
== END 2020-02-08 17:18 | disposition home or self-care (01) ==
PROVIDERS: Physician Assistant; Emergency Provider Physician Assistant; PCP Nurse Practitioner
DX: J44.1 Chronic obstructive pulmonary disease with (acute) exacerbation (principal); F17.210 Nicotine dependence, cigarettes, uncomplicated; I10 Essential (primary) hypertension; Z03.818 Encounter for observation for suspected exposure to other biological agents ruled out; E11.9 Type 2 diabetes mellitus without complications
CPT/HCPCS: 36415; 80053; 93005; 94640; 96374; 99285; U0003; 71045; 83735; 83880; 84484; 85025; 85610; 85730; 93010; J2930; J7620

== ENCOUNTER 2020-02-17 03:11 | Outpatient (CLI) | payer MEDICARE, BC, SELFPAY ==
[2020-02-18 20:40] LABS: COVID-19 RT-PCR Result NEGATIVE (Negative)
== END 2020-02-17 03:31 ==
PROVIDERS: PCP Nurse Practitioner; Visit Provider Family Medicine
DX: Z11.59 Encounter for screening for other viral diseases (principal); J44.9 Chronic obstructive pulmonary disease, unspecified
CPT/HCPCS: U0003

== ENCOUNTER 2020-02-20 01:52 | Outpatient (CLI) | payer MEDICARE, BC, SELFPAY ==
[2020-02-20] MEDS: Albuterol HFA 18 GM 200 PUFF INH IH (14:39)
[2020-02-20] MEDS: Inhaler, Assist Device 1 EACH MC (14:40)
--- NOTE | 2020-02-22 09:17 | W.PFT ---
Date of service: 02/20/20 Time of Service: 01:05 Pulmonary Function Test Result Interpretation Spirometry: Mild obstructive airways disease with significant bronchodilator response Lung Volumes: No evidence of restriction, mild hyperinflation and air trapping Diffusion Capacity: Mildly reduced even when corrected to alveolar volume Airway Pressure: Normal Impression Mild obstructive airways disease with significant bronchodilator response, this is associated with mild hyperinflation and air trapping and mild diffusion defect Clinical Correlation therefore is recommended.
== END 2020-02-20 02:12 ==
PROVIDERS: PCP Nurse Practitioner; Visit Provider Nurse Practitioner Family
DX: J44.9 Chronic obstructive pulmonary disease, unspecified (principal)
CPT/HCPCS: 94060; 94726; 94729

== ENCOUNTER 2020-07-27 22:09 | Outpatient (REF) | payer MEDICARE, SELFPAY ==
[2020-07-29 14:19] LABS: COVID-19 RT-PCR UVMMC Result Negative (Negative)
== END 2020-07-27 22:10 | disposition home or self-care (01) ==
LOC: LBN 22:09
PROVIDERS: PCP Nurse Practitioner; Visit Provider Nurse Practitioner Adult Health
DX: Z20.822 Contact with and (suspected) exposure to COVID-19 (principal); R05 Cough
CPT/HCPCS: U0003; U0005

== ENCOUNTER 2020-08-09 21:35 | Outpatient (REF) | payer MEDICARE, SELFPAY ==
[2020-08-11 13:18] LABS: COVID-19 RT-PCR UVMMC Result Negative (Negative)
== END 2020-08-09 21:36 | disposition home or self-care (01) ==
LOC: NCHCN 21:35
PROVIDERS: PCP Nurse Practitioner; Visit Provider Nurse Practitioner Family
DX: Z20.822 Contact with and (suspected) exposure to COVID-19 (principal)
CPT/HCPCS: U0003

== ENCOUNTER 2020-08-23 00:30 | Outpatient (CLI) | payer MEDICARE, SELFPAY ==
--- NOTE | 2020-08-23 07:45 | DI.CT_ITS ---
EXAM: CT CHEST WO CLINICAL HISTORY: SCREENING FOR LUNG CA, TOBACCO DEPENDENT,F17.200 TECHNIQUE: Imaging Protocol: Axial computed tomography images with coronal and sagittal reformatted images were created and reviewed COMPARISON: CT RENAL COLIC WO CONTRAST from 05/22/2008 CR LUMBAR SPINE COMPLETE from 02/02/2013 CR XR PORTABLE CHEST AP from 02/08/2020 FINDINGS: Tracheobronchial tree: Patent where visualized. Mediastinum and Liv: No dominant adenopathy or fluid collection. Pulmonary parenchyma: No consolidation or dominant measurable mass. Moderate centrilobular emphysema. Small focal area of scarring medial right upper lobe. 4 millimeter diameter medial right upper lob e nodule. Lung Nodules: None. Pleura: No effusion or pneumothorax. Heart: Mild left atrial and left ventricular dilatation.. Mild coronary artery calcifications are se en. Aorta: Thoracic aorta non-dilated.Mild atherosclerotic changes. Upper abdomen: Status post cholecystectomy. Bones: Prominent thoracolumbar kyphosis. No compression fracture. Degenerative disc changes. Soft Tissues: Unremarkable. IMPRESSION: 4 millimeter right upper lobe nodule. Moderate emphysematous changes. Lung RADS Cat 2 - Benign Appearance / Behavior: Nodules with a very low likelihood of becoming a clin ically active cancer due to size or lack of growth Lung-RADS 1.0 CATEGORIES: Category 0 - Prior chest CT exam(s) being located for comparison. Category 1 - Annual screening in 12 months. No nodules or definitely benign nodules. Category 2 - Annual screening in 12 months. Benign appearance. Nodules with low likelihood of becomin g active cancer. Category 3 - 6-month follow-up. Probably benign. Short-term follow-up suggested. Nodules with low lik elihood of becoming active cancer. Category 4A - 3-month follow-up and CT/PET if >8 mm in size. Suspicious finding. Findings which requi re additional testing. Category 4B - Findings which require additional testing and tissue sampling. Modifier S- Potentially clinically significant findings (non lung cancer) RADIATION DOSE DELIVERED: 76.87mGy.cm Total DLP 1.84mGy CTDIvol 76.87mGy.cm Total DLP DATA REPOSITORY: All CT scans at this facility are submitted to the National Radiology Data Registry (NRDR) Dose Index Registry (DIR) with the [employer] ([employer]). RADIATION OPTIMIZATION: All CT scans at this facility use at least one of these dose optimization te chniques: automated exposure control; mA and/or kV adjustment per patient size (includes targeted exa ms where dose is matched to clinical indication); or iterative reconstruction.
--- NOTE | 2020-08-23 13:16 | DI.MAMMO_ITS ---
EXAM: MAMMO SCREENING CLINICAL HISTORY: screening,Z12.39 TECHNIQUE: Mammograms were interpreted according to the usual protocol including computer analysis w [employer] CAD system, tomosynthesis and C-view imaging. COMPARISON: 2012 and 2016 FINDINGS: The breasts are composed of mainly fatty density , Breast Density category A. No suspicious masses or suspicious microcalcifications are seen. No skin thickening or abnormal axillary lymph nodes are seen. There has been no significant change from prior exams. IMPRESSION: BI-RADS Category 1, Negative mammogram Yearly screening mammography is recommended. Breast Density - Category A, fatty density. A negative radiographic report should not delay biopsy if a dominant or clinically suspicious mass is present. Up to ten percent of cancers are not identified on mammography. A negative report may reinforce clinical impression. Adenosis and dense breasts may obscure an underlying neoplasm. False positive reports average 6 to 10%. Patient will receive a letter notifying them of these results.
== END 2020-08-23 00:50 ==
PROVIDERS: PCP Nurse Practitioner; Visit Provider Nurse Practitioner
DX: Z12.31 Encounter for screening mammogram for malignant neoplasm of breast (principal); Z12.2 Encounter for screening for malignant neoplasm of respiratory organs; F17.200 Nicotine dependence, unspecified, uncomplicated; J43.2 Centrilobular emphysema; R91.1 Solitary pulmonary nodule
CPT/HCPCS: 71250; 77063; 77067

== ENCOUNTER 2021-01-24 12:02 | Outpatient (CLI) | payer MEDICARE, SELFPAY ==
--- NOTE | 2021-01-24 11:30 | DI.RAD_ITS ---
Exam(s) XR KNEE RT 3V AP,LAT,KIM EXAM: XR KNEE RT 3V AP,LAT,KIM CLINICAL HISTORY: R knee pain. TECHNIQUE: 2D digital imaging was performed. COMPARISON: CR XR knee RT 3V AP,lat,kim from 01/21/2019 FINDINGS: There is no evidence of fracture nor prominent joint effusion. There is significant narrowing of the lateral compartment, more so than previous. Also marginal osteophyte noted off the outer aspect of the lateral femoral condyle. No obvious narrowing of the medial compartment although there is a subt le subarticular lucency in the medial femoral condyle noted. Cannot exclude subtle osteochondral def ect at this level. On the lateral view there is a round calcific density noted subjacent to the patella measuring 3 x 3 millimeters. Projected over Hoffa fat pad. This calcification was evident on the 2019 study and exh ibits no significant change. IMPRESSION: Progression of degenerative changes as described above. DATA REPOSITORY: RADIATION DOSE DELIVERED:
== END 2021-01-24 12:03 | disposition home or self-care (01) ==
LOC: DIORS 12:02
PROVIDERS: PCP Nurse Practitioner; Referring Provider Nurse Practitioner; Visit Provider Student in an Organized Health Care Education/Training Program
DX: M25.561 Pain in right knee (principal); M17.11 Unilateral primary osteoarthritis, right knee
CPT/HCPCS: 20610; 73562; J1040

== ENCOUNTER 2021-02-21 02:55 | Outpatient (CLI) | payer MEDICARE, SELFPAY ==
[2021-02-21 12:55] LABS: CREATININE 0.8 mg/dL (0.55-1.02); Potassium 4.1 mmol/L (3.5-5.1)
[2021-02-21 13:53] LABS: Hemoglobin A1C 6.1 % (<5.7)
== END 2021-02-21 02:56 | disposition home or self-care (01) ==
LOC: LOS 02:55
PROVIDERS: PCP Nurse Practitioner; Visit Provider Nurse Practitioner
DX: I10 Essential (primary) hypertension (principal); R73.03 Prediabetes
CPT/HCPCS: 36415; 82565; 83036; 84132

== ENCOUNTER 2021-07-31 02:39 | Outpatient (CLI) | payer MEDICARE, SELFPAY ==
[2021-07-31 14:39] LABS: HCT 40.3 % (36.0-46.0); HGB 13.3 g/dL (11.2-15.7); MCH 29.6 pg (27.0-33.0); MCV 89.6 fL (80-95); MPV 10.2 fL (8.0-11.0); Platelet Count 238 10^3/uL (130-400); RDW 13.3 % (11.7-14.6); RDW-SD 44.1 fL; WBC 6.89 10^3/uL (4.4-10.8)
[2021-07-31 17:13] LABS: Anion Gap 8.8 mmol/L (3-11); BUN 19 mg/dL (7-18); CO2 26.2 mmol/L (21.0-32.0); CREATININE 0.7 mg/dL (0.55-1.02); Calculated LDL 64 mg/dL (<100); Chloride 106 mmol/L (98-107); Cholesterol 148 mg/dL (<200); Glucose 145 mg/dL (74-106); HDL Cholesterol 62 mg/dL (40-60); Potassium 3.6 mmol/L (3.5-5.1); Sodium 141 mmol/L (136-145); Triglyceride 113 mg/dL (<150)
[2021-07-31 17:47] LABS: Hemoglobin A1C 6.1 % (<5.7)
== END 2021-07-31 02:40 | disposition home or self-care (01) ==
LOC: LBO 02:40
PROVIDERS: PCP Nurse Practitioner; Visit Provider Nurse Practitioner
DX: R73.03 Prediabetes (principal); E78.5 Hyperlipidemia, unspecified; I10 Essential (primary) hypertension; T14.8XXA Other injury of unspecified body region, initial encounter; E66.9 Obesity, unspecified
CPT/HCPCS: 36415; 80048; 80061; 85027; 83036

== ENCOUNTER → 2021-10-18 00:47 | Outpatient (CLI) | payer MEDICARE, SELFPAY ==
--- NOTE | 2021-10-18 07:30 | DI.DEXA_ITS ---
Exam(s) XR DEXA BONE DENSITY W/WO RAYMUNDO EXAM: XR DEXA BONE DENSITY W/WO RAYMUNDO CLINICAL HISTORY: screening for osteoporosis in postmenopausal woman,z78.0 TECHNIQUE: COMPARISON: Comparison examination is 10/25/2008. FINDINGS: Lateral Spine Image: There is exaggeration of the kyphosis at the thoraco lumbar junction. There is retrolisthesis of L 3 on L4. Left hip: Total T-Score: -2.5. This compares to -0.9 on the prior examination. This is a decrease in the bone mineral density. Total Z-Score: -0.3 T- and Z-scores: Findings are consistent with osteoporosis. Lumbar Spine: Total T-Score: 0.5. This compares with a total T-score of 0.6 on the prior examination. This is a de crease in the bone mineral density. Total Z-Score: 3.3 T- and Z-scores: Within normal limits. IMPRESSION: Osteoporosis in the left hip.
--- NOTE | 2021-10-18 07:30 | DI.MAMMO_ITS ---
Exam(s) MAMMO SCREENING EXAM: MAMMO SCREENING CLINICAL HISTORY: screening.z12.39 TECHNIQUE: Bilateral full field digital CC and MLO mammographic images were obtained with 3D tomosyn thesis and utilizing computer aided detection (CAD). COMPARISON: Available for comparison. FINDINGS: Masses/Architectural Distortion: None seen. Microcalcifications: No suspicious pleomorphic-type are seen. Skin Thickening/Nipple Retraction: None. IMPRESSION: 1. No significant interval change with no specific features of malignancy noted. 2. Unless there is more urgent need, screening mammography is recommended, as per [employer] guidelines. BI-RADS Category 1 - Negative Breast Density - Category B - Scattered areas of fibroglandular density Breast density category C or D implies that the patient has dense breast tissue. Dense breast tissue is very common and is not abnormal but dense breast tissue can make it harder to find cancer on a ma mmogram. Also, dense breast tissue may increase their breast cancer risk. This information about the result of the mammogram report was provided to the patient to raise their awareness. Use this report when you speak with the patient about their risks for breast cancer, which includes their family hist ory. At that time, you may recommend for more screening tests (Ultrasound or MRI) as they might be us eful based on their risk. A negative radiographic report should not delay biopsy if a dominant or clinically suspicious mass is present. Up to ten percent of cancers are not identified on mammography. A negative report may reinforce clinical impression. Adenosis and dense breasts may obscure an underlying neoplasm. False positive reports average 6 to 10%. Patient will receive a letter notifying them of these results.
== END ==
PROVIDERS: PCP Nurse Practitioner; Visit Provider Nurse Practitioner
DX: Z12.31 Encounter for screening mammogram for malignant neoplasm of breast (principal); Z78.0 Asymptomatic menopausal state; M81.0 Age-related osteoporosis without current pathological fracture
CPT/HCPCS: 77063; 77067; 77080

== ENCOUNTER 2022-09-30 22:55 | Outpatient (REF) | payer MEDICARE, SELFPAY ==
[2022-09-30 21:21] LABS: Hemoglobin A1C 6.1 % (<5.7)
== END 2022-09-30 22:56 | disposition home or self-care (01) ==
LOC: LBN 22:55
PROVIDERS: PCP Nurse Practitioner Family; Visit Provider Nurse Practitioner Family
DX: R73.03 Prediabetes (principal)
CPT/HCPCS: 83036

== ENCOUNTER → 2022-10-30 08:35 | Outpatient (BNVA) | payer MEDICARE, SELFPAY | PROVIDERS: PCP Nurse Practitioner Family; Referring Provider Nurse Practitioner Family | DX: M17.11 Unilateral primary osteoarthritis, right knee (principal) | CPT/HCPCS: 20610; J1040 ==

== ENCOUNTER 2022-11-10 07:52 | Outpatient (CLI) | payer MEDICARE, SELFPAY ==
--- NOTE | 2022-11-10 07:45 | RT.EKG_ITS ---
APPROVED REPORT Exam: Resting ECG Reason for Exam: hip pain Patient Location: O HR:87 bpm ECG Measurements Heart Rate 87 AXIS NH 191 P 51 QRSd 97 QRS 68 QT 385 T 61 QTc 463 Conclusion Sinus rhythm...normal P axis, V-rate 50- 99 Supraventricular bigeminy...bigeminy string>4 w/ SV complexes Left ventricular hypertrophy...multiple LVH criteria
== END 2022-11-10 07:53 | disposition home or self-care (01) ==
PROVIDERS: PCP Nurse Practitioner Family; Visit Provider Nurse Practitioner Family
DX: I49.9 Cardiac arrhythmia, unspecified (principal)
CPT/HCPCS: 93010

== ENCOUNTER 2022-11-10 09:03 | Emergency (ER) | payer MEDICARE, SELFPAY ==
[2022-11-10] VITALS (34 sets, daily range): BP systolic 98–163; BP diastolic 40–99; PULSE 74–141; RESP 15–24; TEMP 36.6; O2SAT 94–100
--- NOTE | 2022-11-10 09:00 | RT.EKG_ITS ---
APPROVED REPORT Exam: Resting ECG Reason for Exam: chest pain Patient Location: E HR:71 bpm ECG Measurements Heart Rate 71 AXIS MN 198 P 59 QRSd 90 QRS 30 QT 387 T 57 QTc 421 Conclusion Sinus rhythm...normal P axis, V-rate 60- 99 Supraventricular bigeminy...bigeminy string>4 w/ SV complexes Probable left atrial enlargement...P >50mS, <-0.10mV V1 Nonspecific T abnrm, anterolateral leads...T <-0.10mV, I aVL V2-V6
--- NOTE | 2022-11-10 09:33 | ED.GENADUL_ITS ---
Discharge Plan Disposition Patient Disposition: Home Discharge Details Clinical Impression: Mass of right lung, Chest pain Primary Care Provider: Jigar Guzman ED Provider: Sly Muir Home Meds and New Rx's Prescriptions: Continued pravastatin 20 mg tablet 20 mg PO DAILY Qty: 90 4RF nitroglycerin 0.4 mg tablet, sublingual 0.4 mg Buccal PRN Qty: 50 0RF metoprolol succinate 50 mg tablet extended release 24 hr 50 mg PO DAILY Qty: 90 4RF losartan 100 mg tablet 100 mg PO QAM Qty: 90 4RF ipratropium bromide 42 mcg (0.06 %) spray,non-aerosol 2 spray NS TID PRN (Reason: vasomotor rhinitis) Qty: 15 4RF hydrochlorothiazide 25 mg tablet 25 mg PO DAILY Qty: 90 4RF amlodipine 10 mg tablet 10 mg PO DAILY Qty: 90 4RF albuterol sulfate 90 mcg/actuation HFA aerosol inhaler 2 puff inhalation QID PRN (Reason: bronchospasm) Qty: 18 3RF hydrochlorothiazide 25 mg tablet 25 mg PO DAILY methylprednisolone [Medrol (Chuck)] 4 mg tablets,dose pack 4 mg PO DAILY Qty: 21 0RF Rx Instructions: follow taper instructions cyclobenzaprine 5 mg tablet 5 mg PO TID PRN (Reason: back pain) Qty: 30 0RF Rx Instructions: Take 1 tablet by mouth three times a day as needed for back pain diabetic shoes Qty: 2 0RF acetaminophen [Tylenol] 325 mg tablet 650 mg PO Q6H PRN (Reason: pain) Qty: 90 0RF ibuprofen 200 mg Capsule 200 mg PO HS Discharge Instructions Additional Instructions: There was a mass seen on your chest CT that is concerning for cancer. Timely outpatient follow-up this week as necessary for further diagnostic work-up and treatment. Please follow-up at [facility] on November 14 at 9:20 AM. Please contact your primary care physician to arrange follow-up. Return to the ER immediately for any worsening or new concerning symptoms. Referrals: Jigar Guzman, [facility] [Primary Care Provider] - Medical Decision Making [phone] --82-year-old female with history of hypertension, hyperlipidemia, smoker, prediabetic, here with intermittent chest discomfort since yesterday. Chest discomfort occurs at rest and was unrelieved by Tums. Patient sent by PCP for evaluation. Patient is hypertensive. She has irregular rhythm. EKG was reviewed and interpreted by me: Please see report: Sinus rhythm 71 bpm, supraventricular bigeminy is present. Nonspecific T wave abnormalities noted anterior lateral leads. Consider unstable angina/ACS. Plan to obtain troponin. Potential for indigestion although Tums did not relieve pain and patient does have significant risk factors. Regarding her left hip pain. Patient is focally tender. She has had no recent trauma. I do not appreciate any inflammatory changes. She has had this pain in the past and improved with steroid injection. I suspect exacerbation of chronic arthritis. --Labs reviewed and nondiagnostic. Troponin and delta troponin negative. 1354 --chest x-ray was interpreted by radiology:1. 4.5 cm soft tissue mass in the medial central right breast.? Primary concern is for primary pulmonary neoplasm.? Central adenopathy or pneumonia may also be considered. 2. Fullness in the left hilum suspicious for adenopathy or central mass. 3. CT scan of the chest with contrast should be considered in this patient for further evaluation.? CT of the chest, abdomen pelvis was interpreted by radiology: IMPRESSION: 1. Central right upper lobe mass most concerning for neoplasm.? Small nodule seen in the right upper lobe which may represent metastatic disease. 2. Centrilobular emphysema. 3. No definite evidence of pulmonary embolism.? The hypodensities seen in the right upper lobe appear to be outside of the vessel and parenchymal.? No evidence of right heart strain. 4. Slight interval increase in size of the bilateral adrenal nodule since 2008. 5. Hypodensities in the thyroid gland.? Nonemergent thyroid ultrasound is recommended. 6. Examination was discussed with the ER at 1 p.m. on 11/10/2022. Results were discussed with the patient. I called and spoke with the patient's PCP and discussed results. I asked care management to help arrange follow-up and follow-up with scheduled for Thursday. Usual customary discharge instructions reviewed with the patient. HPI General Mode of arrival: ambulatory . Date/Time Provider Initiated Documentation: 11/10/22 09:14 . Limitations to Documentation: no limitations . Information obtained by: patient . HPI Narrative: 82-year-old female with multimedical problems including history of hyperlipidemia, hypertension, smoker, prediabetic, GERD, presents with chief complaint of chest discomfort. Patient notes that she has had intermittent chest pain since yesterday. She states yesterday morning she woke up and developed retrosternal chest discomfort described as felt like indigestion. Pain lasted minutes and then resolved. She had another episode this morning around 430. Pain again lasted minutes. She took Tums which did not help her discomfort. Patient notes some associated shortness of breath over the past couple days. She also notes pain in her left hip over the past 1 week. Patient states she has had pain in her left hip in the past but that this recent flareup has been worse. She has no pain in her posterior left lower leg. No pain in her calf. She has chronic bilateral lower extremity edema that is improved from prior. Patient was seen at [facility] by her PCP today and sent here for evaluation. Related Data Home Medications Medication Instructions Recorded Confirmed acetaminophen 325 mg tablet 650 mg PO Q6H PRN pain #90 tabs 11/19/18 11/10/22 (Tylenol) ibuprofen 200 mg capsule 200 mg PO HS 02/08/20 11/10/22 albuterol sulfate 90 mcg/actuation 2 puff inhalation QID PRN 09/03/22 11/10/22 aerosol inhaler bronchospasm #18 grams amlodipine 10 mg tablet 10 mg PO DAILY #90 tabs 09/03/22 11/10/22 hydrochlorothiazide 25 mg tablet 25 mg PO DAILY #90 tabs 09/03/22 11/10/22 ipratropium bromide 42 mcg (0.06 2 spray NS TID PRN vasomotor 09/03/22 11/10/22 %) nasal spray rhinitis #15 mL losartan 100 mg tablet 100 mg PO QAM #90 tabs 09/03/22 11/10/22 metoprolol succinate 50 mg 50 mg PO DAILY #90 tabs 09/03/22 11/10/22 tablet,extended release 24 hr nitroglycerin 0.4 mg sublingual 0.4 mg buccal PRN #50 tab-caps 09/03/22 11/10/22 tablet pravastatin 20 mg tablet 20 mg PO DAILY #90 tabs 09/03/22 11/10/22 hydrochlorothiazide 25 mg tablet 25 mg PO DAILY 10/28/22 11/10/22 cyclobenzaprine 5 mg tablet 5 mg PO TID PRN back pain #30 tabs 11/10/22 11/10/22 methylprednisolone 4 mg tablets in 4 mg PO DAILY #21 dose pk 11/10/22 11/10/22 a dose pack (Medrol (Chuck)) Previous Rx's Medication Instructions Recorded acetaminophen 325 mg tablet 650 mg PO Q6H PRN pain #90 tabs 11/19/18 (Tylenol) albuterol sulfate 90 mcg/actuation 2 puff inhalation QID PRN 09/03/22 aerosol inhaler bronchospasm #18 grams amlodipine 10 mg tablet 10 mg PO DAILY #90 tabs 09/03/22 hydrochlorothiazide 25 mg tablet 25 mg PO DAILY #90 tabs 09/03/22 ipratropium bromide 42 mcg (0.06 2 spray NS TID PRN vasomotor 09/03/22 %) nasal spray rhinitis #15 mL losartan 100 mg tablet 100 mg PO QAM #90 tabs 09/03/22 metoprolol succinate 50 mg 50 mg PO DAILY #90 tabs 09/03/22 tablet,extended release 24 hr nitroglycerin 0.4 mg sublingual 0.4 mg buccal PRN #50 tab-caps 09/03/22 tablet pravastatin 20 mg tablet 20 mg PO DAILY #90 tabs 09/03/22 cyclobenzaprine 5 mg tablet 5 mg PO TID PRN back pain #30 tabs 11/10/22 methylprednisolone 4 mg tablets in 4 mg PO DAILY #21 dose pk 11/10/22 a dose pack (Medrol (Chuck)) Allergies Allergy/AdvReac Type Severity Reaction Status Date / Time enalapril maleate AdvReac Intermediate Dizziness/L Verified 11/10/22 07:59 [From Vasotec] ightheade fluoxetine AdvReac Intermediate anxiety Verified 11/10/22 07:59 General Stated Complaint: Chest Pain LACHELLE: 3 PFSH All Active Problems (Updated 11/10/22 @ 13:57 by Sly Muir MD) Irritable bowel syndrome with diarrhea (Acute 04/18/16) Hyperlipidemia (Acute) Essential hypertension (Acute 02/14/13) Esophageal reflux (Acute) H/O + HPylori and [place] Tobacco dependence (Acute) 02/2021- down to 1 pack/ day Prediabetes (Acute) Osteoarthritis of right knee (Acute) Steroid injection: 10/30/22; 01/25/2021 Seasonal affective disorder (Acute) Osteoporosis (Chronic) DEXA 10/2021- offered fosamax Decreased hearing (Acute) Otalgia of right ear (Acute) Bilateral sensorineural hearing loss (Acute) Sciatica, left side (Acute) Bigeminy (Acute) Mass of upper lobe of right lung (Acute) Mass of right lung (Acute) Chest pain (Acute) Medical History Acquired kyphosis After-cataract with vision obscured (11/25/12) Atherosclerosis of [place] coronary artery [place] in 1998 after child commit suicide Bruising Cystocele, midline 3rd degree; repaired Family history of GI malignancy Mom-colon Heart murmur (06/18/17) Malignant melanoma of skin 2020- managed at [facility], no further melanoma Surgical History Abdominal hysterectomy and anterior repair Bladder Surgery X 2 Cholecystectomy History of bilateral oophorectomy History of bladder surgery Oophrectomy, Both bilateral; sister + BRCA gene Status post abdominal hysterectomy Status post cholecystectomy Family History Mother , age 80+ Essential hypertension Colon cancer Father , age 66+ Essential hypertension Stroke Alcohol abuse Lung cancer Sister Essential hypertension Ovarian cancer Brother Heart disease Alcohol abuse Maternal Grandfather , age 47 Heart disease Maternal Grandmother Heart disease FAMILY HX BRCA gene positive Son , age 61 Substance abuse Neoplasm Alcohol abuse Son , Suicide age 39 Substance abuse Alcohol abuse Daughter Alcohol abuse Recovery Cancer Depression Substance abuse Daughter Depression Alcohol abuse Substance abuse Daughter Essential hypertension Depression Hyperlipidemia Daughter Essential hypertension Hyperlipidemia Paternal Grandfather No problems noted. Paternal Grandmother No problems noted. Social History Smoking/Tobacco Use Status: Current every day Tobacco Type: cigarettes Tobacco: How many years used: 65 Quit status: quit date established Second Hand Exposure: Yes Counseling given: provider counseling Smoking risk assessment performed?: Yes Alcohol Intake: current Alcohol Intake frequency: a few times a month Alcohol type: wine Drug use: Never Substance use type: does not use Caregiver/Support person: No Household members: significant other and children Housing: house Communication Needs: None Do you need help understanding health information?: Rarely Pets and animals: Yes Pets and animals: cat(s) and dog(s) Sexually active: No Do you think of yourself as: straight/heterosexual Current gender identity: female What is your relationship status?: How often do you talk on the phone with friends or family?: three or more times per week How often do you get together with friends or relatives?: three or more times per week How often do you attend buddhism or baptist services?: 4 or more times per year Do you belong to any clubs or organized social groups?: no Panel score (0-1 are the most socially isolated patients): 3 What type of physical activity do you participate in: walking Duration: 15-30 minutes/day Frequency: daily Nasrin/Rastafarian: None Special nasrin needs: No Seatbelt use: always Helmet use: No Drive intox or ride w/intox emergency vehicle driver: Yes Drive intox or w/intox emergency vehicle driver: rarely Do you feel safe at home: Yes Do you feel safe in your relationship?: Yes Exam Const General: cooperative and no acute distress HENMT Mouth: moist mucous membranes Eyes Conjunctivae: normal conjunctivae Sclera: normal sclerae Neck Neck: trachea midline and supple Resp Auscultation: clear to auscultation bilaterally, no rales, no rhonchi and no wheezes Cardio Jugular venous pressure: no JVD Rate: regular rate and not tachycardic Rhythm: abnormal rhythm irregularly irregular Heart Sounds: no murmurs GI Palpation: soft, not firm, no guarding, no masses, not rigid and nontender Back/Spine/Pelvis Sacroiliac joints: on the left tender to palpation Skin General skin exam: no rashes or lesions noted Neuro General: patient alert, patient awake and tone normal Extrem General: no calf tenderness, calf tenderness and edema Laterality: bilateral (mild up [place]) Left lower extremity: hip/thigh Details: tenderness Location: of the hip Location: laterally; no swelling and no unusual warmth Psych Appearance: grossly normal Mental Status: mental status grossly normal Speech and Movement: speech and movement normal Course Vital Signs Vital signs: Vital Signs Temperature 36.6 C 11/10/22 09:07 Pulse 85 11/10/22 09:07 Respiratory Rate 18 11/10/22 09:07 Blood Pressure 161/75 H 11/10/22 09:07 Pulse Oximetry 95 11/10/22 09:07 Temperature 36.6 C 11/10/22 09:07 Temperature Source Oral 11/10/22 09:07 Pulse 85 11/10/22 09:07 Respiratory Rate 18 11/10/22 09:07 Respiratory Effort Normal, Non-Labored 11/10/22 09:15 Blood Pressure 161/75 H 11/10/22 09:07 Blood Pressure Position Sitting 11/10/22 09:07 Pulse Oximetry 95 11/10/22 09:07 Oxygen Delivery Method Room Air 11/10/22 09:07 Oxygen Flow Rate 0 11/10/22 09:07 Pain Level 0 11/10/22 09:07
[2022-11-10 09:45] LABS: Abs Immature Grans 0.02 10^3/uL (0.0-0.06); Absolute Basophil Count 0.08 10^3/uL (0.0-0.2); Absolute Eosinophil Count 0.15 10^3/uL (0.0-0.7); Absolute Lymphocyte Count 1.61 10^3/uL (1.2-3.4); Absolute Neutrophil Count 4.55 10^3/uL (1.2-6.7); Basophils % 1.2; Eosinophils % 2.2; HCT 42.4 % (36.0-46.0); HGB 14.3 g/dL (11.2-15.7); Immature Grans % 0.3; Lymphocytes % 23.3; MCH 30.8 pg (27.0-33.0); MCHC 33.7 % (32.0-36.0); MCV 91 fL (80-95); MPV 9.7 fL (8.0-11.0); Monocytes % 7.2; Neutrophils % 65.8; Platelet Count 242 10^3/uL (130-400); RBC 4.65 10^6/uL (3.93-5.22); RDW 13.1 % (11.7-14.6); RDW-SD 44.5 fL; WBC 6.91 10^3/uL (4.4-10.8)
[2022-11-10 10:15] LABS: ALT 17 U/L (14-59); AST 19 U/L (15-37); Albumin 3.9 g/dL (3.4-5.0); Alkaline Phosphatase 94 U/L (46-116); Anion Gap 9.5 mmol/L (3-11); BUN 20 mg/dL (7-18); Bilirubin, Total 0.6 mg/dL (0.2-1.0); CO2 27.5 mmol/L (21.0-32.0); CREATININE 0.8 mg/dL (0.55-1.02); Calcium 9.3 mg/dL (8.5-10.1); Chloride 103 mmol/L (98-107); Estimated GFR 73.06 (mL/min/1.73m2); Glucose 118 mg/dL (74-106); Sodium 140 mmol/L (136-145); Total Protein 7.8 g/dL (6.4-8.2); Troponin I < 50 ng/L (<or=60)
--- NOTE | 2022-11-10 10:34 | DI.RAD_ITS ---
Exam(s) XR PORTABLE CHEST AP EXAM: XR PORTABLE CHEST AP CLINICAL HISTORY: chest pain TECHNIQUE: 2D digital imaging was performed of the chest. One image was obtained. An AP view was ob tained. COMPARISON: CR XR PORTABLE CHEST AP from 02/08/[address] CHEST WO from 08/23/2020 FINDINGS: MEDIASTINUM: New fullness of the left hilum. HEART: Normal. PULMONARY VASCULATURE: Normal. LUNGS: 4.1 x 4.5 cm soft tissue mass in the central right hilum. PLEURAL SPACE: No pleural effusion or pneumothorax. BONE:Within normal limits for the patient's age. OTHER FINDINGS:Normal. IMPRESSION: 1. 4.5 cm soft tissue mass in the medial central right breast. Primary concern is for primary pulmon liza neoplasm. Central adenopathy or pneumonia may also be considered. 2. Fullness in the left hilum suspicious for adenopathy or central mass. 3. CT scan of the chest with contrast should be considered in this patient for further evaluation. DATA REPOSITORY: RADIATION DOSE DELIVERED:
--- NOTE | 2022-11-10 10:56 | NUR.NOTE ---
Nursing Note: This RN assumed care at 1000. Pt comfortable in bed and in no signs of distress. VSS and updated.
--- NOTE | 2022-11-10 11:00 | DI.CT_ITS ---
Exam(s) CT CHEST/ABD/PEL W EXAM: CT CHEST/ABD/PEL W CLINICAL HISTORY: chest pain, ? mass on cxr, rt hip/back pain TECHNIQUE: Imaging Protocol: Axial computed tomography images with coronal and sagittal reformatted images were created and reviewed CONTRAST MATERIAL: Intravenous: Omnipaque 350 contrast volume:100 mL Oral: No COMPARISON: CT RENAL COLIC WO CONTRAST from 05/22/[address] CHEST WO from 08/23/2020 CR XR PORTABLE CHEST AP from 11/10/2022 FINDINGS: CHEST: Tracheobronchial tree: Patent where visualized. Pulmonary parenchyma: There is a 5.8 x 3.6 x 4.2 cm mass centrally in the right upper lobe. It compr esses and encases right upper lobe airways, pulmonary arteries and veins. There are emphysematous ch anges seen within the lungs. There are nodule seen in the right upper lobe adjacent to the pulmonary vessels. They do not appear to lie within the pulmonary arteries. These may represent metastatic f oci. The largest measures 7 mm. There is a 3 mm peripheral pulmonary nodule in the right upper lobe . No architectural distortion. Visualized thyroid gland: There are several hypodensities seen within the thyroid gland. The largest measures 1 cm. A nonemergent thyroid ultrasound may be obtained for further evaluation. Mediastinum and Liv: No dominant adenopathy or fluid collection. The esophagus is unremarkable. The re is a small hiatal hernia. There is no left mediastinal or hilar mass. The opacity seen on the ch est x-ray appears to represent the pulmonary vasculature. Pleura: No effusion or pneumothorax. Heart: The heart is not dilated. There is mild coronary artery calcification. No pericardial effusio n. Pulmonary arteries: No definite pulmonary emboli are identified. There is attenuation of the pulmona ry arteries to the right upper lobe secondary to the mass. Aorta: Thoracic aorta non-dilated. No evidence of dissection. Atherosclerosis is present. Lymph nodes: There is no axillary adenopathy. Soft tissues: Unremarkable. Bones:No aggressive osseous lesions are present. ABDOMEN: Liver: Normal density. No measurable mass. Portal, Superior Mesenteric, and Splenic Veins: Unremarkable. Gallbladder and Biliary Tract: Status post cholecystectomy. The common duct measures 0.9 cm. The fi ndings likely reflect post cholecystectomy state. No evidence of a pancreatic head mass. Pancreas: Normal density, no abnormal calcifications or inflammatory process. Spleen: Normal. Adrenals: There are bilateral adrenal nodules. The right adrenal nodule measures 1.7 x 1.3 cm. Adre nal nodules were present on the CT scan from 05/22/2008. They have shown some interval increase in siz e. These likely reflect adenomas. Kidneys: Normal size, contour and axis. No radiodense stones or obstructive uropathy. There is a homo geneous hypodense cyst in the left kidney measuring 2.4 cm. There are subcentimeter hypodensities se en in both kidneys. They are too small for further characterization. No follow-up is recommended. Abdominal Aorta: Abdominal portion non-dilated. Atherosclerosis. Bowel: There is diverticulosis of the colon, but no evidence of acute diverticulitis. There is no ev idence of bowel obstruction or bowel wall thickening. Appendix is unremarkable. Peritoneal Cavity: No ascites, collection or mesenteric inflammatory response. No free air. Lymph Nodes: Within normal limits. Bones: Within normal limits for the patient's age. Soft Tissues: Unremarkable. PELVIS: Bladder: Symmetric distention, no gross wall thickening. Reproductive Organs: Status post hysterectomy. Lymph Nodes: Within normal limits. Bones: Within normal limits. IMPRESSION: 1. Central right upper lobe mass most concerning for neoplasm. Small nodule seen in the right upper lobe which may represent metastatic disease. 2. Centrilobular emphysema. 3. No definite evidence of pulmonary embolism. The hypodensities seen in the right upper lobe appear to be outside of the vessel and parenchymal. No evidence of right heart strain. 4. Slight interval increase in size of the bilateral adrenal nodule since 2008. 5. Hypodensities in the thyroid gland. Nonemergent thyroid ultrasound is recommended. 6. Examination was discussed with the ER at 1 p.m. on 11/10/2022. RADIATION DOSE DELIVERED: 1,177.09mGy.cm Total DLP DATA REPOSITORY: All CT scans at this facility are submitted to the National Radiology Data Registry (NRDR) Dose Index Registry (DIR) with the [employer] (A[employer]). RADIATION OPTIMIZATION: All CT scans at this facility use at least one of these dose optimization te chniques: automated exposure control; mA and/or kV adjustment per patient size (includes targeted exa ms where dose is matched to clinical indication); or iterative reconstruction.
[2022-11-10] MEDS: Omnipaque 350 MG/ML 500 ML BTL-Imaging package 100 ML IJ (12:09)
[2022-11-10] MEDS: Normal Saline - Diluent 50 ML VIAL IJ (12:09)
[2022-11-10] MEDS: Normal Saline Flush 10 ML SYR IVP (12:10)
[2022-11-10 12:56] LABS: Troponin I < 50 ng/L (<or=60)
--- NOTE | 2022-11-10 13:27 | NUR.NOTE ---
Nursing Note: Pt thoroughly updated with plan of care. Pt has warm blankets and call light for comfort. Pt denies needs at this time.
== END 2022-11-10 14:19 | disposition home or self-care (01) ==
PROVIDERS: Emergency Provider Student in an Organized Health Care Education/Training Program; PCP Nurse Practitioner Family
DX: R91.8 Other nonspecific abnormal finding of lung field (principal); R07.9 Chest pain, unspecified
CPT/HCPCS: 36410; 36415; 74177; 80053; 93005; 99285; 71045; 71260; 83735; 84484; 85025; 93010; 99284

== ENCOUNTER 2023-01-12 02:35 | Outpatient (CLI) | payer MEDICARE, SELFPAY ==
[2023-01-12 09:29] LABS: Abs Immature Grans 0.17 10^3/uL (0.0-0.06); Absolute Basophil Count 0.06 10^3/uL (0.0-0.2); Absolute Eosinophil Count 0.03 10^3/uL (0.0-0.7); Absolute Lymphocyte Count 1.42 10^3/uL (1.2-3.4); Absolute Monocyte Count 0.57 10^3/uL (0.1-0.8); Absolute Neutrophil Count 1.81 10^3/uL (1.2-6.7); Basophils % 1.5; Eosinophils % 0.7; HCT 34.5 % (36.0-46.0); HGB 11.9 g/dL (11.2-15.7); Immature Grans % 4.2; MCH 30.7 pg (27.0-33.0); MCHC 34.5 % (32.0-36.0); MCV 89 fL (80-95); Neutrophils % 44.6; Platelet Count 334 10^3/uL (130-400); RBC 3.87 10^6/uL (3.93-5.22); RDW-SD 41.2 fL; WBC 4.06 10^3/uL (4.4-10.8)
[2023-01-12 09:48] LABS: ALT 20 U/L (14-59); AST 21 U/L (15-37); Albumin 3.5 g/dL (3.4-5.0); Alkaline Phosphatase 111 U/L (46-116); Anion Gap 6.4 mmol/L (3-11); BUN 13 mg/dL (7-18); Bilirubin, Total 0.5 mg/dL (0.2-1.0); CO2 29.6 mmol/L (21.0-32.0); CREATININE 0.7 mg/dL (0.55-1.02); Chloride 102 mmol/L (98-107); Estimated GFR 85.76 (mL/min/1.73m2); Glucose 130 mg/dL (74-106); Magnesium 1.7 mg/dL (1.8-2.4); Potassium 3.7 mmol/L (3.5-5.1); Sodium 138 mmol/L (136-145)
== END 2023-01-12 02:36 | disposition home or self-care (01) ==
LOC: LBO 02:36 → LBN 10:11
PROVIDERS: PCP Nurse Practitioner Family; Visit Provider Internal Medicine Medical Oncology
DX: C34.11 Malignant neoplasm of upper lobe, right bronchus or lung (principal)
CPT/HCPCS: 80053; 83735; 85025

== ENCOUNTER 2023-02-02 04:19 | Outpatient (CLI) | payer MEDICARE, SELFPAY ==
[2023-02-02 08:14] LABS: Absolute Basophil Count 0.06 10^3/uL (0.0-0.2); Absolute Eosinophil Count 0.02 10^3/uL (0.0-0.7); Absolute Lymphocyte Count 0.62 10^3/uL (1.2-3.4); Absolute Monocyte Count 0.48 10^3/uL (0.1-0.8); Absolute Neutrophil Count 2.29 10^3/uL (1.2-6.7); Basophils % 1.6; Eosinophils % 0.5; HCT 29.2 % (36.0-46.0); HGB 9.9 g/dL (11.2-15.7); Immature Grans % 5.4; Lymphocytes % 16.9; MCH 30.9 pg (27.0-33.0); MCHC 33.9 % (32.0-36.0); MCV 91 fL (80-95); MPV 9.1 fL (8.0-11.0); Monocytes % 13.1; Neutrophils % 62.5; Platelet Count 211 10^3/uL (130-400); RDW 14.4 % (11.7-14.6); RDW-SD 44.6 fL; WBC 3.67 10^3/uL (4.4-10.8)
[2023-02-02 08:29] LABS: Diff Comment Diff Reviewed; RBC Morphology Normal
[2023-02-02 08:36] LABS: ALT 19 U/L (14-59); AST 17 U/L (15-37); Albumin 3.3 g/dL (3.4-5.0); Alkaline Phosphatase 94 U/L (46-116); Anion Gap 8.8 mmol/L (3-11); BUN 18 mg/dL (7-18); Bilirubin, Total 0.3 mg/dL (0.2-1.0); CO2 27.2 mmol/L (21.0-32.0); CREATININE 0.9 mg/dL (0.55-1.02); Calcium 9.3 mg/dL (8.5-10.1); Chloride 103 mmol/L (98-107); Estimated GFR 63.43 (mL/min/1.73m2); Glucose 132 mg/dL (74-106); Magnesium 1.8 mg/dL (1.8-2.4); Potassium 3.6 mmol/L (3.5-5.1); Sodium 139 mmol/L (136-145); Total Protein 6.7 g/dL (6.4-8.2)
== END 2023-02-02 04:20 | disposition home or self-care (01) ==
LOC: LBO 04:19
PROVIDERS: PCP Nurse Practitioner Family; Visit Provider Internal Medicine Medical Oncology
DX: C34.11 Malignant neoplasm of upper lobe, right bronchus or lung (principal)
CPT/HCPCS: 36415; 80053; 83735; 85025

== ENCOUNTER 2023-02-25 02:19 | Outpatient (CLI) | payer MEDICARE, SELFPAY ==
[2023-02-25 08:23] LABS: Abs Immature Grans 0.18 10^3/uL (0.0-0.06); Absolute Lymphocyte Count 0.75 10^3/uL (1.2-3.4); Absolute Monocyte Count 0.59 10^3/uL (0.1-0.8); Absolute Neutrophil Count 2.64 10^3/uL (1.2-6.7); Basophils % 2.3; Eosinophils % 2.3; HCT 28.9 % (36.0-46.0); HGB 9.7 g/dL (11.2-15.7); Immature Grans % 4.1; Lymphocytes % 17.2; MCH 31.8 pg (27.0-33.0); MCHC 33.6 % (32.0-36.0); MCV 95 fL (80-95); Monocytes % 13.5; Neutrophils % 60.6; Platelet Count 238 10^3/uL (130-400); RBC 3.05 10^6/uL (3.93-5.22); RDW 17.5 % (11.7-14.6); RDW-SD 59.5 fL; WBC 4.36 10^3/uL (4.4-10.8)
[2023-02-25 08:41] LABS: ALT 13 U/L (14-59); AST 18 U/L (15-37); Albumin 3.5 g/dL (3.4-5.0); Alkaline Phosphatase 90 U/L (46-116); Anion Gap 8.3 mmol/L (3-11); BUN 17 mg/dL (7-18); Bilirubin, Total 0.4 mg/dL (0.2-1.0); CO2 26.7 mmol/L (21.0-32.0); CREATININE 0.7 mg/dL (0.55-1.02); Calcium 9.3 mg/dL (8.5-10.1); Chloride 105 mmol/L (98-107); Estimated GFR 85.76 (mL/min/1.73m2); Glucose 104 mg/dL (74-106); Magnesium 1.8 mg/dL (1.8-2.4); Potassium 3.8 mmol/L (3.5-5.1); Sodium 140 mmol/L (136-145); Total Protein 6.9 g/dL (6.4-8.2)
== END 2023-02-25 02:20 | disposition home or self-care (01) ==
LOC: LBO 02:19
PROVIDERS: PCP Nurse Practitioner Family; Visit Provider Internal Medicine Medical Oncology
DX: C34.11 Malignant neoplasm of upper lobe, right bronchus or lung (principal)
CPT/HCPCS: 36415; 80053; 83735; 85025

== ENCOUNTER → 2023-03-16 01:46 | Outpatient (CLI) | payer MEDICARE, SELFPAY ==
--- NOTE | 2023-03-16 | DI.CT_ITS ---
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 COMPARISON: CT CT CHEST WO from 08/23/[address] CHEST/ABD/PEL W from 11/10/2022 FINDINGS: Pulmonary parenchyma: Significant interval decrease in size of previously noted right upper lobe per ihilar mass, now measuring roughly 5.5 x 2 cm by 2.5 cm. New mass left upper lobe measuring 13 zunilda meters in diameter. New mass right lower lobe measuring 10 millimeters. Few other smaller nodular d ensities are seen in the right lower lobe. There are a few small, less than 10 millimeter nodules se en in the right middle lobe. Central lobular emphysematous changes. Mild apical scarring. Mild interstitial changes. No consoli dation. Tracheobronchial tree: No bronchiectasis or mucous plugging. Mediastinum and Liv: No dominant adenopathy or fluid collection. Pleura: No effusion. No pneumothorax. Heart: The heart is mildly dilated. Mild coronary artery calcifications are seen. Aorta: Thoracic aorta non-dilated. Mild atherosclerotic changes. Upper abdomen: Post cholecystectomy. Stable mild biliary dilatation. Stable small right adrenal no dule. Stable left renal cyst. Small hiatal hernia. Bones: Prominent kyphosis at the thoracolumbar junction.Degenerative changes in the spine. Soft tissues: Unremarkable. IMPRESSION: Significant interval decrease in size of right upper lobe mass. new spiculated nodule seen in the left upper, right lower and right middle lobes. RADIATION DOSE DELIVERED: Total DLP DATA REPOSITORY: All CT scans at this facility are submitted to the National Radiology Data Registry (NRDR) Dose Index Registry (DIR) with the [employer] (ACR). RADIATION OPTIMIZATION: All CT scans at this facility use at least one of these dose optimization te chniques: automated exposure control; mA and/or kV adjustment per patient size (includes targeted exa ms where dose is matched to clinical indication); or iterative reconstruction.
[2023-03-16] MEDS: Normal Saline - Diluent 50 ML VIAL IJ (10:03)
[2023-03-16] MEDS: Omnipaque 350 MG/ML 100 ML BTL IJ (10:03)
[2023-03-16] MEDS: Normal Saline Flush 10 ML SYR IVP (10:04)
[2023-03-16 10:08] LABS: HCT 30.3 % (36.0-46.0); HGB 9.9 g/dL (11.2-15.7); MCH 31.9 pg (27.0-33.0); MCHC 32.7 % (32.0-36.0); MCV 98 fL (80-95); MPV 9.1 fL (8.0-11.0); Platelet Count 336 10^3/uL (130-400); RDW 16.4 % (11.7-14.6); RDW-SD 58.6 fL; WBC 3.52 10^3/uL (4.4-10.8)
[2023-03-16 10:22] LABS: ALT 17 U/L (14-59); AST 12 U/L (15-37); Albumin 3.8 g/dL (3.4-5.0); Alkaline Phosphatase 118 U/L (46-116); BUN 18 mg/dL (7-18); Bilirubin, Total 0.3 mg/dL (0.2-1.0); CREATININE 0.7 mg/dL (0.55-1.02); Calcium 9.8 mg/dL (8.5-10.1); Chloride 103 mmol/L (98-107); Estimated GFR 85.76 (mL/min/1.73m2); Glucose 114 mg/dL (74-106); Magnesium 1.7 mg/dL (1.8-2.4); Potassium 4.1 mmol/L (3.5-5.1); Sodium 142 mmol/L (136-145); Total Protein 7.6 g/dL (6.4-8.2)
[2023-03-16 10:26] LABS: Absolute Basophil Count 0.04 10^3/uL (0.0-0.2); Absolute Eosinophil Count 0.21 10^3/uL (0.0-0.7); Absolute Monocyte Count 0.53 10^3/uL (0.1-0.8); Absolute Neutrophil Count 2.01 10^3/uL (1.2-6.7); Atypical Lymphocytes % 1; Bands % 3; Metamyelocytes % 4
[2023-03-16 10:27] LABS: Diff Comment Manual Differential; RBC Morphology Normal
== END ==
PROVIDERS: PCP Nurse Practitioner Family; Visit Provider Nurse Practitioner Family
DX: C34.11 Malignant neoplasm of upper lobe, right bronchus or lung (principal)
CPT/HCPCS: 80053; 71260; 83735; 85025; J3490

== ENCOUNTER → 2023-04-21 00:32 | Outpatient (CLI) | payer MEDICARE, SELFPAY ==
--- NOTE | 2023-04-21 | DI.MRI_ITS ---
Exam(s) MR BRAIN WO/W EXAM: MR BRAIN WO/W CLINICAL HISTORY: LUNG CANCER C34.11 RESTAGING TO ASSESS FOR GIVER PREGRESSION. TECHNIQUE: Multiplanar multisequence MRI of the brain was performed. CONTRAST MATERIAL: IV Contrast: 10 ML of Dotarem contrast administered. COMPARISON: No exams were available for comparison FINDINGS: VENTRICLES AND EXTRA AXIAL SPACES: Normal in size and morphology for the patient's age. HEMORRHAGE: None. CEREBRAL PARENCHYMA: No focus of restricted diffusion to suggest acute infarct. No space-occupying le brody identified. Moderate white matter changes consistent chronic microvascular disease. Moderate atrophy. MIDLINE SHIFT: None. BRAINSTEM/CEREBELLUM: Normal. CALVARIUM: Normal. ENHANCEMENT: No suspicious enhancement identified. VISUALIZED PARANASAL SINUSES/MASTOIDS: Clear. Orbits: Unremarkable. Pituitary: Normal. Vasculature: Normal flow voids. IMPRESSION: No evidence of metastatic disease. Atrophy and white matter changes of small vessel disease. DATA REPOSITORY:
[2023-04-21 09:39] LABS: Abs Immature Grans 0.02 10^3/uL (0.0-0.06); Absolute Basophil Count 0.08 10^3/uL (0.0-0.2); Absolute Lymphocyte Count 1.28 10^3/uL (1.2-3.4); Absolute Monocyte Count 0.51 10^3/uL (0.1-0.8); Absolute Neutrophil Count 3.12 10^3/uL (1.2-6.7); Basophils % 1.5; Eosinophils % 5.6; HCT 36.1 % (36.0-46.0); HGB 11.5 g/dL (11.2-15.7); Immature Grans % 0.4; Lymphocytes % 24.1; MCH 31.6 pg (27.0-33.0); MCHC 31.9 % (32.0-36.0); MCV 99 fL (80-95); MPV 9.4 fL (8.0-11.0); Monocytes % 9.6; Neutrophils % 58.8; Platelet Count 191 10^3/uL (130-400); RBC 3.64 10^6/uL (3.93-5.22); RDW 12.3 % (11.7-14.6); RDW-SD 45.4 fL; WBC 5.31 10^3/uL (4.4-10.8)
[2023-04-21] MEDS: Normal Saline Flush 10 ML SYR IJ (09:43)
[2023-04-21] MEDS: Gadoterate meglumine 20 ML SYRINGE IVP (09:44)
[2023-04-21 09:50] LABS: ALT 11 U/L (14-59); AST 17 U/L (15-37); Albumin 3.6 g/dL (3.4-5.0); Alkaline Phosphatase 86 U/L (46-116); Anion Gap 7.1 mmol/L (3-11); BUN 24 mg/dL (7-18); Bilirubin, Total 0.4 mg/dL (0.2-1.0); CO2 27.9 mmol/L (21.0-32.0); CREATININE 0.7 mg/dL (0.55-1.02); Chloride 105 mmol/L (98-107); Estimated GFR 85.76 (mL/min/1.73m2); Glucose 91 mg/dL (74-106); Potassium 4.2 mmol/L (3.5-5.1); Sodium 140 mmol/L (136-145); Total Protein 7.1 g/dL (6.4-8.2)
== END ==
PROVIDERS: PCP Nurse Practitioner Family; Visit Provider Internal Medicine Medical Oncology
DX: C34.11 Malignant neoplasm of upper lobe, right bronchus or lung (principal)
CPT/HCPCS: 70553; 80053; 83735; 85025

== ENCOUNTER → 2023-05-25 02:00 | Outpatient (CLI) | payer MEDICARE, SELFPAY ==
--- NOTE | 2023-05-25 | DI.CT_ITS ---
Exam(s) CT CHEST W EXAM: CT CHEST W CLINICAL HISTORY: RT UPPER LOBE LUNG CANCER C34.11 TECHNIQUE: Imaging Protocol: Axial computed tomography images with coronal and sagittal reformatted images were created and reviewed CONTRAST MATERIAL: Intravenous: Omnipaque 350Contrast volume:70 mL. COMPARISON: CT CT CHEST/ABD/PEL W from 11/10/[address] CHEST W from 03/16/2023 FINDINGS: Tracheobronchial tree: Patent where visualized. Pulmonary parenchyma: Moderate centrilobular emphysematous changes are present. The left upper lobe mass now measures 7 mm compared to 1.3 cm on the prior examination. (Series 2, image 219). The cent ral right upper lobe mass now measures 2.4 x 1.5 cm (series 3, image 221). Using similar measuring t echniques on the prior examination, the mass measured 3.0 x 1.8 cm (on 03/16/2023). The right lower lobe masses have resolved except for a small residual 4 mm nodule (series 3, image 271), which previo usly measured 8 mm. No new pulmonary nodules are present. No focal consolidating infiltrates are se en. Mediastinum and Liv: No dominant adenopathy or fluid collection. The esophagus is unremarkable. Sma ll hiatal hernia. Thyroid gland: Tiny nodules are seen in the thyroid gland. The largest measures 6 mm. No follow-up is recommended. Pleura: No effusion or pneumothorax. Heart: Mild cardiomegaly. Coronary artery calcifications are present. No pericardial effusion. Aorta: Thoracic aorta non-dilated. Atherosclerosis. No evidence of dissection. Pulmonary arteries: No pulmonary emboli are identified. Upper abdomen: There is a 1.9 x 1.5 cm right adrenal nodule. This compares to 1.7 x 1.3 on the prio r examination. There is unchanged nodularity of the left adrenal gland. There is a stable left aurea l simple cysts. No follow-up is recommended. Lymph nodes: Within normal limits. Bones: Within normal limits for the patient's age. Soft tissues: Unremarkable. IMPRESSION: 1. Continued decrease in size of the left upper and right upper lobe mass. Resolution of the previou sly seen right lower lobe pulmonary nodules except for a small 4 mm residual nodule which previously measured 8 mm. 2. Moderate centrilobular emphysema. 3. Bilateral adrenal nodules. The right nodule measures 1.9 x 1.4 cm compared to 1.7 x 1.3 cm. RADIATION DOSE DELIVERED: 298.04mGy.cm Total DLP DATA REPOSITORY: All CT scans at this facility are submitted to the National Radiology Data Registry (NRDR) Dose Index Registry (DIR) with the [employer] (ACR). RADIATION OPTIMIZATION: All CT scans at this facility use at least one of these dose optimization te chniques: automated exposure control; mA and/or kV adjustment per patient size (includes targeted exa ms where dose is matched to clinical indication); or iterative reconstruction.
[2023-05-25 08:00] LABS: Abs Immature Grans 0.02 10^3/uL (0.0-0.06); Absolute Basophil Count 0.05 10^3/uL (0.0-0.2); Absolute Eosinophil Count 0.24 10^3/uL (0.0-0.7); Absolute Lymphocyte Count 0.74 10^3/uL (1.2-3.4); Absolute Monocyte Count 0.43 10^3/uL (0.1-0.8); Absolute Neutrophil Count 4.04 10^3/uL (1.2-6.7); Basophils % 0.9; Eosinophils % 4.3; HCT 36.7 % (36.0-46.0); HGB 12.3 g/dL (11.2-15.7); Immature Grans % 0.4; Lymphocytes % 13.4; MCH 30.5 pg (27.0-33.0); MCHC 33.5 % (32.0-36.0); MCV 91 fL (80-95); MPV 9.3 fL (8.0-11.0); Monocytes % 7.8; Neutrophils % 73.2; Platelet Count 186 10^3/uL (130-400); RBC 4.03 10^6/uL (3.93-5.22); RDW 11.6 % (11.7-14.6); RDW-SD 38.8 fL; WBC 5.52 10^3/uL (4.4-10.8)
[2023-05-25 08:20] LABS: ALT 14 U/L (14-59); AST 16 U/L (15-37); Albumin 3.7 g/dL (3.4-5.0); Alkaline Phosphatase 90 U/L (46-116); Anion Gap 9.7 mmol/L (3-11); BUN 18 mg/dL (7-18); Bilirubin, Total 0.5 mg/dL (0.2-1.0); CO2 28.3 mmol/L (21.0-32.0); CREATININE 0.9 mg/dL (0.55-1.02); Calcium 9.5 mg/dL (8.5-10.1); Chloride 102 mmol/L (98-107); Estimated GFR 63.43 (mL/min/1.73m2); Glucose 141 mg/dL (74-106); Magnesium 1.8 mg/dL (1.8-2.4); Potassium 3.7 mmol/L (3.5-5.1); Sodium 140 mmol/L (136-145); Total Protein 7.5 g/dL (6.4-8.2)
[2023-05-25] MEDS: Omnipaque 350 MG/ML 100 ML BTL IJ (08:49)
== END ==
PROVIDERS: PCP Nurse Practitioner Family; Visit Provider Internal Medicine Medical Oncology
DX: C34.11 Malignant neoplasm of upper lobe, right bronchus or lung (principal)
CPT/HCPCS: 80053; 71260; 83735; 85025; J3490

== ENCOUNTER → 2023-08-24 02:20 | Outpatient (CLI) | payer MEDICARE, SELFPAY ==
--- NOTE | 2023-08-24 | DI.CT_ITS ---
Exam(s) CT CHEST W EXAM: CT CHEST W CLINICAL HISTORY: RUL LUNG CA,C34.11,S/P CHEMO,RT,RESTAGING EXAM TECHNIQUE: Imaging Protocol: Axial computed tomography images with coronal and sagittal reformatted images were created and reviewed CONTRAST MATERIAL: Intravenous: Omnipaque 350 Contrast volume:structured data ml. COMPARISON: CT CT CHEST W from 05/25/2023 FINDINGS: Pulmonary parenchyma: Marked interval increase in size of previously noted right upper lobe mass, now measuring 5.5 by 3.4 by 5.5 cm. Significant surrounding lymphangitic spread. There is a new right middle lobe nodule measuring 1.5 cm. Adjacent peribronchial thickening. Other smaller adjacent are as of nodularity. This is new from prior. Stable 7 millimeter left upper lobe nodule. Stable 4 mil limeter in right lower lobe nodule. Moderate centrilobular emphysema. Tracheobronchial tree: No bronchiectasis or mucous plugging. Mediastinum and Liv: New 2 centimeter subcarinal lymph node. Pleura: No effusion. No pneumothorax. Heart: The heart is not dilated. coronary artery calcifications are seen. Aorta: Thoracic aorta non-dilated. Mild atherosclerotic changes. Upper abdomen: Right adrenal nodule measures 18 x 15 millimeters, not significantly changed thickenin g of the left adrenal gland appears unchanged. Surgical clips in the right upper quadrant create art ifact. Large quantity of stool noted Bones: Kyphosis. No evidence compared of compression fractures. No lytic or blastic lesions ident ified.Degenerative changes in the spine. Soft tissues: Unremarkable. IMPRESSION: Marked interval increase in size of right upper lobe mass with surrounding lymphangitic spread. Subcarinal adenopathy. New 1.5 centimeter right middle lobe nodule. RADIATION DOSE DELIVERED: Total DLP DATA REPOSITORY: All CT scans at this facility are submitted to the National Radiology Data Registry (NRDR) Dose Index Registry (DIR) with the [employer] (ACR). RADIATION OPTIMIZATION: All CT scans at this facility use at least one of these dose optimization te chniques: automated exposure control; mA and/or kV adjustment per patient size (includes targeted exa ms where dose is matched to clinical indication); or iterative reconstruction.
[2023-08-24 14:31] LABS: Abs Immature Grans 0.01 10^3/uL (0.0-0.06); Absolute Basophil Count 0.05 10^3/uL (0.0-0.2); Absolute Eosinophil Count 0.14 10^3/uL (0.0-0.7); Absolute Lymphocyte Count 1.02 10^3/uL (1.2-3.4); Absolute Monocyte Count 0.45 10^3/uL (0.1-0.8); Absolute Neutrophil Count 2.62 10^3/uL (1.2-6.7); Basophils % 1.2; Eosinophils % 3.3; HCT 35.1 % (36.0-46.0); HGB 11.5 g/dL (11.2-15.7); Immature Grans % 0.2; Lymphocytes % 23.8; MCH 30.2 pg (27.0-33.0); MCHC 32.8 % (32.0-36.0); MCV 92 fL (80-95); MPV 9.1 fL (8.0-11.0); Monocytes % 10.5; Platelet Count 196 10^3/uL (130-400); RBC 3.81 10^6/uL (3.93-5.22); RDW 13.6 % (11.7-14.6); RDW-SD 46.4 fL; WBC 4.29 10^3/uL (4.4-10.8)
[2023-08-24 14:56] LABS: ALT 13 U/L (14-59); AST 16 U/L (15-37); Albumin 3.5 g/dL (3.4-5.0); Alkaline Phosphatase 76 U/L (46-116); Anion Gap 8.8 mmol/L (3-11); BUN 19 mg/dL (7-18); Bilirubin, Total 0.4 mg/dL (0.2-1.0); CO2 29.2 mmol/L (21.0-32.0); CREATININE 0.8 mg/dL (0.55-1.02); Calcium 8.9 mg/dL (8.5-10.1); Chloride 103 mmol/L (98-107); Estimated GFR 72.61 (mL/min/1.73m2); Glucose 88 mg/dL (74-106); Magnesium 1.8 mg/dL (1.8-2.4); Potassium 3.7 mmol/L (3.5-5.1); Sodium 141 mmol/L (136-145); Total Protein 7.3 g/dL (6.4-8.2)
[2023-08-24] MEDS: Omnipaque 350 MG/ML 100 ML BTL IJ (15:08)
[2023-08-24] MEDS: Normal Saline - Diluent 50 ML VIAL IJ (15:11)
== END ==
PROVIDERS: PCP Nurse Practitioner Family; Visit Provider Internal Medicine Medical Oncology
DX: C34.11 Malignant neoplasm of upper lobe, right bronchus or lung (principal); R91.1 Solitary pulmonary nodule; Z92.21 Personal history of antineoplastic chemotherapy
CPT/HCPCS: 80053; 71260; 83735; 85025; J3490

== ENCOUNTER → 2023-10-02 01:14 | Outpatient (CLI) | payer MEDICARE, SELFPAY ==
--- NOTE | 2023-10-02 | DI.MRI_ITS ---
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 CONTRAST MATERIAL: IV Contrast: 9 mL of Dotarem contrast administered. COMPARISON: MR MR BRAIN WO/W from 04/21/2023 FINDINGS: VENTRICLES AND EXTRA AXIAL SPACES: Normal in size and morphology for the patient's age. HEMORRHAGE: None. CEREBRAL PARENCHYMA: There are areas of hyperintense signal seen in the white matter on the FLAIR and T2 weighted images consistent with chronic microvascular ischemic disease. There is a focus of rest ricted diffusion involving the choroid plexus in the right atrial region. No space-occupying lesion identified. MIDLINE SHIFT: None. BRAINSTEM/CEREBELLUM: Normal. CALVARIUM: Normal. ENHANCEMENT: No suspicious enhancement identified. VISUALIZED PARANASAL SINUSES/MASTOIDS: Clear. [place]: Normal flow void. [place]: Unremarkable. OTHER FINDINGS: IMPRESSION: 1. Age-related cerebral atrophy and chronic microvascular ischemic disease. 2. No enhancing lesion to suggest an intracranial metastasis. 3. Focus of restricted diffusion in the right lateral ventricle in the choroid plexus. Findings are suggestive of an infarct. Unexpected findings DATA REPOSITORY:
[2023-10-02] MEDS: Normal Saline Flush 10 ML SYR IVP (08:59)
[2023-10-02] MEDS: Gadoterate meglumine 20 ML SYRINGE 9 ML IVP (08:59)
== END ==
PROVIDERS: PCP Nurse Practitioner Family; Visit Provider Internal Medicine Medical Oncology
DX: C34.11 Malignant neoplasm of upper lobe, right bronchus or lung (principal); I67.82 Cerebral ischemia
CPT/HCPCS: 70553

== ENCOUNTER 2023-10-03 09:58 | Inpatient (IN) | payer MEDICARE, SELFPAY ==
[2023-10-03] VITALS (59 sets, daily range): BP systolic 75–134; BP diastolic 30–91; PULSE 87–122; RESP 2–37; TEMP 36.8–38.9; O2SAT 89–99
--- NOTE | 2023-10-03 10:00 | RT.EKG_ITS ---
APPROVED REPORT Exam: Resting ECG Reason for Exam: SOB Patient Location: E HR:113 bpm ECG Measurements Heart Rate 113 AXIS WI 195 P 35 QRSd 88 QRS 29 QT 325 T 81 QTc 442 Conclusion Sinus tachycardia...rate> 99 Atrial premature complex...SV complex w/ short R-R interval
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
[2023-10-03 10:23] LABS: BE (Venous) 3 mmol/L (-2-3); HCO3 (Venous) 27 mmol/L (23-28); O2 Sat (Venous) 73 %; TCO2 (Venous) 25 mmol/L (24-29); pCO2 (Venous) 39 mmHg (41-51); pH (Venous) 7.45 (7.31-7.41); pO2 (Venous) 38 mmHg
[2023-10-03 10:24] LABS: Lactate 1.5 mmol/L (0.6-1.4)
[2023-10-03 10:29] LABS: Absolute Lymphocyte Count 0.06 10^3/uL (1.2-3.4); Absolute Monocyte Count 0.02 10^3/uL (0.1-0.8); HCT 30.2 % (36.0-46.0); HGB 10.3 g/dL (11.2-15.7); Lymphocytes % 54.5 %; MCHC 34.1 % (32.0-36.0); MCV 88 fL (80-95); MPV 9.5 fL (8.0-11.0); Monocytes % 18.2 %; Neutrophils % 27.3 %; RBC 3.43 10^6/uL (3.93-5.22); RDW 12.3 % (11.7-14.6); RDW-SD 39.8 fL
[2023-10-03] MEDS: methylPREDNISolone SUCC 125 MG VIAL IVP (10:29)
[2023-10-03] MEDS: Albuterol/Ipratropium 3 ML UPD VIAL UPD (10:30)
[2023-10-03] MEDS: Normal Saline 250 ML 500 ML IV ×2 (10:31→12:15)
[2023-10-03 10:38] LABS: INR 1.1 (0.9-1.1); PTT Activated 24.1 sec (23.6-32.8); Prothrombin Time 10.8 sec (9.1-11.1)
[2023-10-03 10:39] LABS: Absolute Neutrophil Count 0.03 10^3/uL (1.2-6.7); WBC 0.11 10^3/uL (4.4-10.8)
[2023-10-03 10:41] LABS: Platelet Count 70 10^3/uL (130-400); RBC Morphology Normal
[2023-10-03 10:42] LABS: Diff Comment Diff Reviewed
[2023-10-03 10:49] LABS: ALT 49 U/L (14-59); AST 80 U/L (15-37); Albumin 3.2 g/dL (3.4-5.0); Alkaline Phosphatase 135 U/L (46-116); Anion Gap 8.8 mmol/L (3-11); BUN 18 mg/dL (7-18); Bilirubin, Total 0.8 mg/dL (0.2-1.0); CO2 27.2 mmol/L (21.0-32.0); CREATININE 0.7 mg/dL (0.55-1.02); Calcium 8.6 mg/dL (8.5-10.1); Chloride 101 mmol/L (98-107); Estimated GFR 85.23 (mL/min/1.73m2); Glucose 137 mg/dL (74-106); Magnesium 1.3 mg/dL (1.8-2.4); NT-proBNP 1202 pg/mL (<300); Potassium 3.3 mmol/L (3.5-5.1); Sodium 137 mmol/L (136-145); Total Protein 6.9 g/dL (6.4-8.2)
[2023-10-03] MEDS: CEFEPIME 2 GM in Normal Saline 100 ML IVPB ×2 (10:52→22:50)
[2023-10-03 10:53] LABS: Troponin I 1322 ng/L (< or =60)
[2023-10-03] MEDS: Normal Saline - Diluent 50 ML VIAL IJ (11:09)
[2023-10-03] MEDS: Omnipaque 350 MG/ML 100 ML BTL IJ (11:15)
--- NOTE | 2023-10-03 11:22 | DI.CT_ITS ---
Exam(s) CT CHEST PE CTA EXAM: CT CHEST PE CTA CLINICAL HISTORY: dyspnea, lung cancer. TECHNIQUE: Imaging Protocol: CT angiography of the chest was performed using pulmonary embolus douglas col. Multi planar reconstructions were performed. CONTRAST MATERIAL: Intravenous: Omnipaque 350 Contrast volume: 100 cc COMPARISON: CT CT CHEST W from 08/24/2023 FINDINGS: CHEST: PULMONARY ARTERIES: There are no intraluminal filling defects to suggest acute pulmonary emboli. LUNGS: The right-sided parahilar infiltrate is again noted and appears similar in the right upper lob e but has increased to involve the superior segment of the right lower lobe. There is also now a sma ll right pleural effusion evident. Opposite-left lung remains clear. No pleural fluid on the left s heron. MEDIASTINUM: Right hilar adenopathy appears unchanged. Subcarinal adenopathy appears unchanged. The re is no new adenopathy in the anterior mediastinal fat nor in the left hilum. CARDIAC: Heart size is upper normal. There is no pericardial effusion.Caliber of the thoracic aorta is within normal limits. No evidence of dissection. There is no significant shift of the interventri cular septum. PARTIALLY VISUALIZED UPPERMOST ABDOMEN: Gallbladder surgically absent.. OSSEOUS: No significant osseous lesions.No fractures.. IMPRESSION: 1. No evidence of acute pulmonary emboli. No evidence of pulmonary infarction. 2. Interval increase in size of right hilar region infiltrate and mass with increasing involvement of the superior segment of the right lower lobe. Also small right pleural effusion now evident. 3. Left lung remains relatively clear. RADIATION DOSE DELIVERED: 148.41mGy.cm Total DLP DATA REPOSITORY: All CT scans at this facility are submitted to the National Radiology Data Registry (NRDR) Dose Index Registry (DIR) with the [employer] (ACR). RADIATION OPTIMIZATION: All CT scans at this facility use at least one of these dose optimization te chniques: automated exposure control; mA and/or kV adjustment per patient size (includes targeted exa ms where dose is matched to clinical indication); or iterative reconstruction.
[2023-10-03 11:25] LABS: COVID-19 PCR Negative (Negative); Influenza A PCR Negative (Negative); Influenza B PCR Negative (Negative); RSV PCR Negative (Negative)
[2023-10-03 11:36] LABS: Source Nasopharynx
--- NOTE | 2023-10-03 11:55 | DI.VRAD_ITS ---
PROCEDURE INFORMATION: Exam: CTA Chest With Contrast Exam date and time: 10/03/2023 11:17 AM Age: 83 years old Clinical indication: Shortness of breath; Patient HX: SOB TECHNIQUE: Imaging protocol: Computed tomographic angiography of the chest with contrast. Exam focused on the arteries. 3D rendering (Not supervised by radiologist): MIP and/or 3D reconstructed images were created by the technologist. Contrast material: OMNIPAQUE 350; Contrast volume: 60 ml; Contrast route: INTRAVENOUS (IV); COMPARISON: CT CHEST W 08/24/2023 3:07 PM FINDINGS: Pulmonary arteries: Normal. No pulmonary emboli. Aorta: Unremarkable. No aortic aneurysm. No aortic dissection. Lungs: Interval increase in size of the soft tissue mass in the right hilar region. There increased narrowing of the right jerome and upper/lower bronchi. Pleural spaces: Unremarkable. No pneumothorax. No pleural effusion. Heart: Unremarkable. No cardiomegaly. No pericardial effusion. Lymph nodes: Unremarkable. No enlarged lymph nodes. Bones/joints: Unremarkable. No acute fracture. Soft tissues: Unremarkable. Other findings: Underlying emphysema IMPRESSION: 1. No pulmonary embolism. 2. Interval increase in size of the soft tissue mass in the right hilar region. There is interval increased narrowing of the right jerome and upper/lower lobe bronchi Dictated and Authenticated by: Emily Cardoso MD. Ordering:BAKARI Muhammad MD
[2023-10-03] MEDS: MAGNESIUM SULFATE 2 GM/50 ML BAG IVINF (12:04)
[2023-10-03] MEDS: VANCOMYCIN/WATER (PEG) 1 GM/200 ML BAG IV (12:04)
[2023-10-03 12:51] LABS: Troponin I 2106 ng/L (< or =60)
[2023-10-03] MEDS: Aspirin 81 MG CHEW (12:54)
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
[2023-10-03 13:46] LABS: Bilirubin Negative (Negative); Blood Trace-lysed (Negative); Clarity Cloudy (Clear); Glucose Negative (Negative); Ketones 15 mg/dL (Negative); Leukocyte Esterase Negative (Negative); Nitrite Negative (Negative); Specific Gravity 1.015 (1.005-1.025); pH 5.5 (5-8)
[2023-10-03 13:55] LABS: Bacteria Moderate HPF (Negative); C & S Indicated? No; Casts Negative LPF (Negative); Crystals Negative HPF (Negative); Epithelial Cells Few HPF (Negative); Mucus Negative (Negative); RBC 0-2 HPF (0-2); WBC 0-2 HPF (0-5)
[2023-10-03] MEDS: Enoxaparin 40 MG/0.4 ML SYR SC (14:38)
[2023-10-03 17:29] LABS: Lactate 1.7 mmol/L (0.6-1.4)
--- NOTE | 2023-10-03 17:45 | RT.EKG_ITS ---
APPROVED REPORT Exam: Resting ECG Reason for Exam: rising trop Patient Location: I HR:103 bpm ECG Measurements Heart Rate 103 AXIS NV 207 P 35 QRSd 93 QRS 49 QT 350 T 173 QTc 458 Conclusion Sinus tachycardia...rate> 99 Atrial premature complex...SV complex w/ short R-R interval Borderline prolonged NV interval...NV >207, V-rate 91-120 Probable LVH with secondary repol abnrm...multiple LVH criteria
[2023-10-03 17:57] LABS: Troponin I 2661 ng/L (< or =60)
[2023-10-03] MEDS: Lactated Ringers 1,000 ML 75 ML IV (19:50)
[2023-10-03] MEDS: Albuterol 2.5 MG/3 ML INH SOLN VIAL UPD (19:51)
[2023-10-03] MEDS: Memantine 5 MG TAB 10 MG PO (20:38)
[2023-10-03] MEDS: Acetaminophen 325 MG TAB 650 MG PO (20:38)
[2023-10-03] MEDS: Melatonin 3 MG TAB PO (20:38)
[2023-10-03] MEDS: Ibuprofen 200 MG TAB PO (20:39)
[2023-10-03] MEDS: Normal Saline Flush 10 ML SYR IVP (20:39)
[2023-10-03] MEDS: Ondansetron 4 MG/2 ML VIAL IVP (20:51)
[2023-10-03] MEDS: Lactated Ringers 250 ML IV (23:50)
[2023-10-04] VITALS (9 sets, daily range): BP systolic 98–122; BP diastolic 51–71; PULSE 80–100; RESP 2–20; TEMP 36.5–37.2; O2SAT 93–98
[2023-10-04] MEDS: Lactated Ringers 1,000 ML 150 ML IV (01:01)
[2023-10-04 07:12] LABS: Absolute Lymphocyte Count 0.15 10^3/uL (1.2-3.4); HCT 26.1 % (36.0-46.0); HGB 9.1 g/dL (11.2-15.7); MCH 30.7 pg (27.0-33.0); MCHC 34.9 % (32.0-36.0); MCV 88 fL (80-95); MPV 10.3 fL (8.0-11.0); RBC 2.96 10^6/uL (3.93-5.22); RDW 12.3 % (11.7-14.6); RDW-SD 39.5 fL
[2023-10-04 07:29] LABS: Anion Gap 8.8 mmol/L (3-11); BUN 21 mg/dL (7-18); CO2 24.2 mmol/L (21.0-32.0); CREATININE 0.8 mg/dL (0.55-1.02); Calcium 8.2 mg/dL (8.5-10.1); Chloride 103 mmol/L (98-107); Estimated GFR 72.61 (mL/min/1.73m2); Glucose 142 mg/dL (74-106); Potassium 3.2 mmol/L (3.5-5.1); Sodium 136 mmol/L (136-145)
[2023-10-04 07:35] LABS: Platelet Count 48 10^3/uL (130-400)
[2023-10-04 07:36] LABS: Absolute Monocyte Count 0.11 10^3/uL (0.1-0.8); Diff Comment Manual Differential; RBC Morphology Normal
[2023-10-04 07:37] LABS: Absolute Neutrophil Count 0.02 10^3/uL (1.2-6.7)
[2023-10-04 07:38] LABS: WBC 0.28 10^3/uL (4.4-10.8)
[2023-10-04 07:42] LABS: Troponin I 1229 ng/L (< or =60)
[2023-10-04] MEDS: Memantine 5 MG TAB 10 MG PO ×2 (07:43→21:23)
[2023-10-04] MEDS: Omeprazole 20 MG CAPCR 40 MG PO (07:43)
[2023-10-04] MEDS: Sertraline 50 MG TAB PO (07:44)
[2023-10-04] MEDS: Acetaminophen 325 MG TAB 650 MG PO ×3 (07:44→21:22)
[2023-10-04] MEDS: Normal Saline Flush 10 ML SYR IVP ×2 (07:45→21:20)
[2023-10-04] MEDS: Lactated Ringers 1,000 ML 100 ML IV ×2 (08:28→21:44)
[2023-10-04] MEDS: Pravastatin 20 MG TAB PO (08:50)
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
[2023-10-04] MEDS: CEFEPIME 2 GM in Normal Saline 100 ML IVPB ×2 (09:42→21:23)
[2023-10-04] MEDS: VANCOMYCIN/WATER (PEG) 1.25 GM/250 ML BAG IV (12:04)
[2023-10-04] MEDS: Albuterol/Ipratropium 3 ML UPD VIAL UPD ×2 (12:56→20:19)
[2023-10-04] MEDS: Potassium Chloride 20 MEQ TABCR PO ×2 (14:17→17:00)
--- NOTE | 2023-10-04 14:23 | PGE_ITS ---
Date of Service Date of service: 10/04/23 Time of Service: 14:23 Assessment and Plan Assessment and plan (1) Neutropenic fever: Status: Acute Assessment and plan: Will continue vancomycin and cefepime day 2 as initiated in the emergency department Pharmacy dosing (2) Severe sepsis: Status: Acute Assessment and plan: Meets criteria for severe sepsis with respiratory rate 26 fever 38.1 pulse 101 systolic blood pressure in the 70s and 80s and white blood cell count less than 4. She did respond to IV fluids and did not require pressors. She was given 1 L of normal saline with stabilization of her blood pressure Will continue broad-spectrum antibiotics in setting of neutropenic fever No source identified, blood cultures pending (3) Pancytopenia: Status: Acute Assessment and plan: See above In setting of recent chemotherapy and severe sepsis (4) Acute non-ST segment elevation myocardial infarction: Status: Acute Assessment and plan: Has had no chest pain Emergency department provider discussed case with cardiology at [facility] Will cycle troponin Received aspirin in the emergency department recommendations for enoxaparin, scheduled as 40 mg SQ twice daily (5) Small cell carcinoma of right lung: Status: Acute Assessment and plan: [place] [facility] [place], last dose one week ago. evidence on imaging of increasing right lung mass (6) Advanced care planning/counseling discussion: Status: Acute Assessment and plan: palliative care has been consulted and plans for possible hospice admission next week. will consult palliative patient is DNR/DNI (7) Essential hypertension: Status: Acute Assessment and plan: Will hold all blood pressure medications in setting of sepsis with hypotension. Continue to monitor blood pressure and resume medications when appropriate Will continue beta-santiago with holding parameters for systolic blood pressure less than 100 (8) Discharge planning issues: Status: Acute Assessment and plan: DVT prophylaxis she is fully anticoagulated on enoxaparin Limits of care patient is DNR/DNI palliative consultation pending Anticipated discharge Thursday morning if she remains medically stable so she can attend her oncology appointment at [facility]. Will down step to oral antibiotics if needed. discussed with DR Damian Subjective Subjective Patient reports: no new complaints, feels better, tolerating liquids well, tolerating a regular diet and fever (max temp overnight 38.9) Interval history since last seen: Hypotensive overnight requiring IV fluid bolus and increase of basal rate from 75-100 no fever today blood pressure stabilized Exam Const General: no acute distress Orientation: alert HENMT Head: normal to inspection Ears: external ears normal General nose exam: external nose normal Mouth: moist mucous membranes Eyes General: appearance normal, both eyes and all related structures Neck Neck: normal visual inspection Resp Effort & Inspection: normal respiratory effort and able to speak in complete sentences Auscultation: rhonchi and wheezes Cardio Rate: regular rate Heart Sounds: no murmurs GI Palpation: not firm and nontender Skin General skin exam: no rashes or lesions noted Neuro General: patient alert and patient oriented x3 Extrem General: normal to inspection Psych Mental Status: mental status grossly normal Objective Last Vital Signs Temp 36.7 C 10/04/23 07:34 Pulse 89 10/04/23 07:34 Resp 16 10/04/23 07:34 BP 107/64 10/04/23 07:34 Pulse Ox 98 10/04/23 12:56 Laboratory Results - last 24 hr 10/03/23 10/04/23 17:20 06:32 WBC 0.28 L* RBC 2.96 L Hgb 9.1 L Hct 26.1 L MCV 88 MCH 30.7 MCHC 34.9 RDW 12.3 Plt Count 48 L MPV 10.3 Immature Gran % 0.0 Neutrophils % 6.0 Lymphocytes % 54.0 Monocytes % 40.0 Eosinophils % 0.0 Basophils % 0.0 Nucleated RBC % 0.0 Absolute Neutrophils 0.02 L* Absolute Lymphocytes 0.15 L Absolute Monocytes 0.11 Absolute Eosinophils 0.00 Absolute Basophils 0.00 RBC Morphology Normal VBG Lactate 1.7 H Sodium 136 Potassium 3.2 L Chloride 103 Carbon Dioxide 24.2 Anion Gap 8.8 BUN 21 H Creatinine 0.8 Est GFR (CKD-EPI 2020) 72.61 Glucose 142 H Calcium 8.2 L Troponin I 2661 H* 1229 H* Time Spent with Patient Time Spent with Patient: 35-49 minutes Time was spent: preparing to see the patient(eg.review tests), obtaining and/or reviewing separately otained hiistory, ordering medications,tests, procedures, indepentently interpreting results and counseling the patient
[2023-10-04 16:15] LABS: Magnesium 1.8 mg/dL (1.8-2.4)
[2023-10-04 17:23] LABS: Lab Add On Test DONE
[2023-10-04] MEDS: Ibuprofen 200 MG TAB PO (21:22)
[2023-10-04] MEDS: Protein Nutritional Supplement 16 GM 1 OUNCE PACKET PO (21:22)
[2023-10-04] MEDS: Metoprolol 12.5 MG TAB PO (22:04)
[2023-10-04] MEDS: Enoxaparin 30 MG/0.3 ML SYR SC (22:04)
[2023-10-04] MEDS: Melatonin 3 MG TAB PO (23:45)
[2023-10-05 03:17] VITALS: BP 102/58; PULSE 67; RESP 16; TEMP 36.6; O2SAT 93
[2023-10-05 04:58] VITALS: O2SAT 84; O2SAT 90
[2023-10-05] MEDS: Albuterol 2.5 MG/3 ML INH SOLN VIAL UPD (05:13)
[2023-10-05 05:21] VITALS: O2SAT 92
[2023-10-05 06:25] LABS: Absolute Basophil Count 0.01 10^3/uL (0.0-0.2); Absolute Eosinophil Count 0.01 10^3/uL (0.0-0.7); Absolute Lymphocyte Count 0.11 10^3/uL (1.2-3.4); Absolute Monocyte Count 0.06 10^3/uL (0.1-0.8); Basophils % 3.7 %; Eosinophils % 3.7 %; HCT 26.2 % (36.0-46.0); Lymphocytes % 40.7 %; MCH 30.7 pg (27.0-33.0); MCHC 34.4 % (32.0-36.0); MCV 89 fL (80-95); MPV 10.4 fL (8.0-11.0); Monocytes % 22.2 %; Neutrophils % 29.7 %; RBC 2.93 10^6/uL (3.93-5.22); RDW 12.5 % (11.7-14.6); RDW-SD 40.5 fL
[2023-10-05 06:40] LABS: Anion Gap 10.3 mmol/L (3-11); BUN 22 mg/dL (7-18); CO2 21.7 mmol/L (21.0-32.0); CREATININE 0.7 mg/dL (0.55-1.02); Calcium 7.8 mg/dL (8.5-10.1); Chloride 103 mmol/L (98-107); Estimated GFR 85.23 (mL/min/1.73m2); Glucose 105 mg/dL (74-106); Potassium 3.2 mmol/L (3.5-5.1); Sodium 135 mmol/L (136-145)
[2023-10-05 06:46] LABS: Troponin I 859 ng/L (< or =60)
[2023-10-05 07:12] LABS: Diff Comment Agrees w/ Instrument; Hypochromasia 2+
[2023-10-05 07:13] LABS: Platelet Count 49 10^3/uL (130-400); Polychromasia Present
[2023-10-05 07:15] LABS: WBC 0.27 10^3/uL (4.4-10.8)
[2023-10-05 07:16] LABS: Absolute Neutrophil Count 0.08 10^3/uL (1.2-6.7)
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
[2023-10-05] MEDS: Normal Saline Flush 10 ML SYR IVP (07:49)
[2023-10-05] MEDS: Protein Nutritional Supplement 16 GM 1 OUNCE PACKET PO (07:50)
[2023-10-05] MEDS: Omeprazole 20 MG CAPCR 40 MG PO (07:50)
[2023-10-05] MEDS: Potassium Chloride 20 MEQ TABCR PO ×2 (07:50→12:50)
[2023-10-05] MEDS: Sertraline 50 MG TAB PO (07:50)
[2023-10-05] MEDS: Pravastatin 20 MG TAB PO (07:50)
[2023-10-05] MEDS: Memantine 5 MG TAB 10 MG PO (07:50)
[2023-10-05] MEDS: Acetaminophen 325 MG TAB 650 MG PO (07:50)
[2023-10-05] MEDS: Albuterol/Ipratropium 3 ML UPD VIAL UPD (08:24)
[2023-10-05 08:27] VITALS: BP 129/87; PULSE 114; RESP 20; TEMP 36.1; O2SAT 94
[2023-10-05] MEDS: CEFEPIME 2 GM in Normal Saline 100 ML IVPB (10:17)
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
[2023-10-05 12:12] VITALS: BP 117/59; PULSE 88; RESP 18; TEMP 36.4; O2SAT 92
--- NOTE | 2023-10-05 13:29 | CMDISCH_ITS ---
Date of service: 10/05/23 Time of Service: 13:29 LACE Index Scoring Tool Questions: Length of Stay (in days): 2 Was the patient admitted via the E.D.?: Yes Comorbidities: Previous M.I. and Metastatic Solid Tumor E.D. Visits: 1 Answers: Total Score: 11 Risk of Readmission: High Risk Care Management Discharge Plan Reason for Hospitalization: sepsis Discharge Plan: Vania will be discharged home with no new services. She will f ollow up with her community providers and plan of acre and transport with family. Vania may transition to hospice after her appointment with Oncology on . Patient/Family Education Needs: Review of discharge instructions, limitations, follow up plan, discuss Ask Me Three. SDOH Health Related Social Needs: No Data to Display
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
== END 2023-10-05 13:13 | disposition home or self-care (01) | DRG 871 ==
LOC: ER 14:12 → MS 14:51
PROVIDERS: Family Medicine; Nurse Practitioner Acute Care; Admitting Provider Family Medicine; Emergency Provider Emergency Medicine; PCP Nurse Practitioner Family; Visit Provider Family Medicine
DX: A41.9 Sepsis, unspecified organism (principal); D61.810 Antineoplastic chemotherapy induced pancytopenia; I21.4 Non-ST elevation (NSTEMI) myocardial infarction; C34.11 Malignant neoplasm of upper lobe, right bronchus or lung; R65.20 Severe sepsis without septic shock; I10 Essential (primary) hypertension; T45.1X5A Adverse effect of antineoplastic and immunosuppressive drugs, initial encounter; D70.1 Agranulocytosis secondary to cancer chemotherapy; R50.81 Fever presenting with conditions classified elsewhere; Z66 Do not resuscitate; H90.3 Sensorineural hearing loss, bilateral; M54.32 Sciatica, left side; M81.0 Age-related osteoporosis without current pathological fracture; E78.5 Hyperlipidemia, unspecified; R73.03 Prediabetes; K58.0 Irritable bowel syndrome with diarrhea; K21.9 Gastro-esophageal reflux disease without esophagitis
CPT/HCPCS: 00123; 36415; 71275; 80048; 80053; 82805; 84145; 87040; 87637; 93005; 93308; 94640; 96365; 96366; 96367; 96372; 96375; 99285; J1650; 81003; 81015; 83605; 83735; 83880; 84484; 85025; 85610; 85730; 93010; 94667; 94668; 94760; 99223; 99232; 99239; J0692; J2405; J2919; J3372; J3475; J3490; J7613; J7620